=== PATIENT | female | born 1930 | race Caucasian/White ===

== ENCOUNTER → 2016-10-22 | Outpatient (CLI) | payer MEDICARE ==
[2015-11-05 11:20] VITALS: BP 136/81
[~2016-10-22] MED LIST: ALPR0.25 PO; ASPI81TA2 PO; CALC600T4 PO; CITA10TA4 PO; FLUT1DIS IH; LEVO75TA PO; LISI-334 PO; LISI1TAB3 PO; MONT10TA6 PO; REGADENOSON 0.4 MG/5 ML DISP.SYRIN. IV ONE; TRAM-29 PO; TRAZ100T12 PO; TRAZ50TA15 PO; VITA100C4 PO
--- NOTE | 2016-10-22 16:13 | RAD ---
APPROVED REPORT Test Type: Pharmacological Stress Nurse/Tech: SIMBA SANDOVAL Test Indications: FATIGUE, DYSPNEA WITH EXERTION Cardiac History: HTN, SEE EHR Medications: SEE EHR Medical History: ASTHMA, LIVER CIRRHOSIS, SEE EHR Resting ECG: SR Resting Heart Rate: 74 bpm Resting Blood Pressure: 117/67mmHg Pretest Chest Pain: No chest pain Nurse/Tech Notes LUNG SOUNDS CLEAR, S1S2 WNL. Consent: The procedure was explained to the patient in lay terms. Informed consent was witnessed. Eddy eout was entered into [facility]. History and Stress Test performed by ÓSCAR Campos Pharm. Details Pharmacologic stress testing was performed using 0.4mg per 5ml of regadenoson given intravenously ove r 7-10 seconds. Stress Symptoms NAUSEA. POST EXERCISE Reason for Termination: Infusion complete Max HR: 102 bpm Max Blood Pressure: 139/63mmHg Blood Pressure response to exercise: Normal blood pressure response during stress. Heart Rate response to exercise: WNL Chest Pain: No. Arrhythmia: No. ST Change: Yes. INTERPRETATION Stress EKG Conclusion: No evidence of stress induced EKG changes. Imaging Protocol IMAGE PROTOCOL: Rest Tc-99m/stress Tc-99m 1 day Rest: Stress: Viability: Radiopharm.Tc99m [id number] Sestamibi Dose12.6mCi 35.6mCi Duration 15min. 10min. Img Date 10/22/2016 10/22/2016 Inj-Img [id number]. 90min. Rest Admin Site:IV - Right ForearmAdministrator:ÓSCAR Campos Stress Admin Site: IV - Right ForearmAdministrator: TERRI Alarcon, ARRT (R)(N) STRESS DATA End Diast. Vol.16.0mlAv. Heart Atvr463.0bpm End Syst. Vol.1.0mlCO Index BSA0.0L/min Myocardial Mass48.0gEject. Zunmkglw48.0% Stress Rates Pk. Fill Rate2.38EDV/secLVtime Pk. Fill 26.44msec Pk. Empty Rate11.94ESV/secLVtime Pk. Zxfel017.13msec 09/01 Pk. Fill0.45EDV/sec Stress Scores Regional WT1.00Summed WT1.00 Regional WM0.00Summed WM1.00 The rest and stress images show normal perfusion, normal contraction and thickening. LV Perf. Quant 17 Seg. SSS0.00 17 Seg. SRS0.00 17 Seg. SDS0.00 Stress Defect Extent (% LAD)0.00Rest Defect Extent (% LAD)0.00Rev. Defect Extent (% LAD)0.00 Stress Defect Extent (% LCX) 0.00Rest Defect Extent (% LCX)0.00Rev. Defect Extent (% LCX)0.00 Stress Defect Extent (% RCA)0.00Rest Defect Extent (% RCA)0.00Rev. Defect Extent (% RCA)0.00 Stress Defect Extent (% DEANDRA)0.00Rest Defect Extent (% DEANDRA)0.00Rev. Defect Extent (% DEANDRA)0.00 Other Information Quality:Good Risk Assessment: Low Risk Conclusion 1. No evidence of vasodilator induced EKG changes. 2. Normal myocardial perfusion at stress/rest 3. Low risk study. EF > 70%
== END | disposition home or self-care (01) ==
LOC: NM 10:40
PROVIDERS: ATTEND Family Medicine
DX: I10 Essential (primary) hypertension (principal); R53.83 Other fatigue; R06.09 Other forms of dyspnea; E78.5 Hyperlipidemia, unspecified
CPT/HCPCS: 78452; 93017; 96374; 96375; 96376; A9500; J2785

== ENCOUNTER → 2016-11-30 | Outpatient (CLI) | payer MEDICARE ==
[2015-11-05 11:20] VITALS: BP 136/81
[~2016-11-30] MED LIST changes: -REGADENOSON 0.4 MG/5 ML DISP.SYRIN. IV ONE
--- NOTE | 2016-11-30 15:14 | KCIC ---
PROCEDURE Two-view chest HISTORY Chronic cough COMPARISON None FINDINGS Two views of the chest are submitted. Pericardial cardiac silhouette is considered within normal limits. There is atherosclerotic calcification of the aortic arch. There is no dependent pleural fluid, pneumothorax, lobar infiltrate. There is probably emphysema. There is multilevel thoracic spondylosis. There is apparently some deviation of the trachea to the right although may be due to the aortic arch. There is likely height loss of T12 poorly characterized by this exam. IMPRESSION 1. There is no radiographic evidence of acute cardiopulmonary disease. There is probably emphysema. 2. There is some nonspecific deviation of the trachea to the right although may be due to the aortic arch. There are no older exams to evaluate stability. 3. There is likely height loss of T12 vertebral body of uncertain chronicity. Electronically signed by: Cesar Borges MD (Nov 30, 2016 15:13:03)
== END | disposition home or self-care (01) ==
LOC: KCIC 14:05
PROVIDERS: ATTEND Nurse Practitioner Family
DX: R05 Cough (principal)
CPT/HCPCS: 71020

== ENCOUNTER → 2017-07-08 | Outpatient (CLI) | payer MEDICARE ==
[2015-11-05 11:20] VITALS: BP 136/81
[~2017-07-08] MED LIST changes: +ASPI-630 PO; -ASPI81TA2 PO; -TRAM-29 PO; +TRAM-48 PO
--- NOTE | 2017-07-08 16:41 | RAD ---
Ankle brachial index study: Clinical indications: Claudication. Leg aches. Toe pain. Ankle/brachial indices were performed on both sides. Right side: Arm: The systolic blood pressure is 135 mmHg Ankle: The systolic blood pressure is 132 mmHg using the posterior tibial artery and 126 mm Hg using the dorsalis pedis artery. Therefore, the ankle brachial index on the right side is 0.93 using the dorsalis pedis artery.. Left side: Arm: The systolic blood pressure is 132 mmHg Ankle: The systolic blood pressure is 125 mmHg using the posterior tibial artery and 96 mm Hg using the dorsalis pedis artery. Therefore, the ankle brachial index on the left side is 0.72 using the dorsalis pedis artery.. Impression: Mild decrease in the YANICK on the right side and moderate decrease in the YANICK on the left side.
--- NOTE | 2017-07-08 17:01 | RAD ---
EXAM: Bilateral lower extremity arterial Doppler. HISTORY: Bilateral lower extremity claudication and toe pain. COMPARISON: None. FINDINGS: Grayscale and Doppler analysis of the lower extremity arterial systems was performed. There are triphasic waveforms through the proximal superficial femoral arteries bilaterally. There are biphasic more distally bilaterally. There is mildly focally elevated velocity within the left posterior tibial artery distally at 143 cm/s, suggesting a more focal stenosis. IMPRESSION: 1. Findings consistent with mildly flow limiting stenosis within the mid portions of both superficial femoral arteries. Flow is detectable distally bilaterally.
== END | disposition home or self-care (01) ==
LOC: US 15:03
PROVIDERS: ATTEND Family Medicine
DX: I73.9 Peripheral vascular disease, unspecified (principal); M79.605 Pain in left leg; M79.604 Pain in right leg
CPT/HCPCS: 93922; 93925

== ENCOUNTER 2017-10-25 07:06 | Emergency (ER) | payer MEDICARE ==
[2017-10-25] MEDS: DIPHTH,PERTUSS(ACELL),TET TOX 0.5 ML DISP.SYRIN. VAX IM (08:16)
[2017-10-25] MEDS: LIDOCAINE WITH 8.4% SOD BICARB 3 ML DISP.SYRIN. INJ (08:41)
[2017-10-25] MEDS: IPRATRPIUM/ALBUTEROL 0.5/2.5MG 3 ML NEBU. NEB (09:19)
[2017-10-25] MEDS: ACETAMINOPHEN 325 MG TABLET. PO (09:29)
== END 2017-10-25 09:36 | disposition home or self-care (01) ==
LOC: ER 07:06
DX: S01.01XA Laceration without foreign body of scalp, initial encounter (principal); S51.812A Laceration without foreign body of left forearm, initial encounter; J45.909 Unspecified asthma, uncomplicated; Z86.73 Personal history of transient ischemic attack (TIA), and cerebral infarction without residual deficits; Z88.5 Allergy status to narcotic agent; W18.09XA Striking against other object with subsequent fall, initial encounter; Y93.89 Activity, other specified; Y99.8 Other external cause status; Y92.89 Other specified places as the place of occurrence of the external cause
CPT/HCPCS: 12002; 70450; 72125; 90471; 90715; 94640; 99284-25; J7620

== ENCOUNTER → 2017-10-27 | Outpatient (CLI) | payer MEDICARE | END | disposition home or self-care (01) | LOC: KCIC 15:18 | DX: J45.909 Unspecified asthma, uncomplicated (principal); M47.894 Other spondylosis, thoracic region; I70.0 Atherosclerosis of aorta | CPT/HCPCS: 71046 ==

== ENCOUNTER → 2017-12-20 | Outpatient (CLI) | payer MEDICARE ==
[~2017-12-20] MED LIST changes: -ALPR0.25 PO; -ASPI-630 PO; -CALC600T4 PO; -CITA10TA4 PO; -FLUT1DIS IH; -LEVO75TA PO; -LISI-334 PO; -LISI1TAB3 PO; -MONT10TA6 PO; +REGADENOSON 0.4 MG/5 ML DISP.SYRIN. IV; -TRAM-48 PO; -TRAZ100T12 PO; -TRAZ50TA15 PO; -VITA100C4 PO
[2017-12-20] MEDS: REGADENOSON 0.4 MG/5 ML DISP.SYRIN. IV (11:51)
== END | disposition home or self-care (01) ==
LOC: NM 09:01
DX: I11.9 Hypertensive heart disease without heart failure (principal); M79.89 Other specified soft tissue disorders; J45.909 Unspecified asthma, uncomplicated; H54.7 Unspecified visual loss; R60.0 Localized edema; R06.09 Other forms of dyspnea
CPT/HCPCS: 78452; 93017; 93306; 96374; 96375; 96376; A9500; J2785

== ENCOUNTER → 2018-04-26 | Outpatient (CLI) | payer MEDICARE ==
[2017-10-25 08:41] VITALS: BP 109/59
[~2018-04-26] MED LIST changes: +ALPR0.25 PO; +ASCO500T2 PO; +ASPI-630 PO; +BUDE10.2 IH; +CALC-77 PO; +CALC600T4 PO; +CITA10TA4 PO; +DIPH25CA58 PO; +FLUT1DIS IH; +GUAI12003 PO; +LEVO25TA4 PO; +LEVO75TA PO; +LIOT5TAB3 PO; +LISI-334 PO; +LISI1TAB3 PO; +MONT10TA6 PO; +MULT1TAB52 PO; -REGADENOSON 0.4 MG/5 ML DISP.SYRIN. IV; +TRAM-48 PO; +TRAZ-85 PO; +TRAZ-86 PO; +VITA100C4 PO
--- NOTE | 2018-04-26 13:18 | KCIC ---
EXAM: Chest, 2 views. HISTORY: Dyspnea. COMPARISON: 10/27/2017. FINDINGS: Frontal and lateral views of the chest are obtained. There is bilateral lower lobe atelectasis. There is no consolidation, pleural effusion or pneumothorax. There is slight blunting of the right costophrenic angle likely due to basilar scarring or atelectasis. The heart is normal in size. There is thoracic scoliosis. IMPRESSION: Bilateral lower lobe atelectasis. Electronically signed by: Priscilla Goss MD (04/26/2018 1:15 PM) [place] [id number]
== END | disposition home or self-care (01) ==
LOC: KCIC 12:22
PROVIDERS: ATTEND Family Medicine
DX: J98.11 Atelectasis (principal); M41.84 Other forms of scoliosis, thoracic region; E03.9 Hypothyroidism, unspecified; I11.9 Hypertensive heart disease without heart failure; E78.5 Hyperlipidemia, unspecified; Z88.5 Allergy status to narcotic agent
CPT/HCPCS: 71046

== ENCOUNTER → 2018-07-19 | Outpatient (CLI) | payer MEDICARE ==
[2017-10-25 08:41] VITALS: BP 109/59
[~2018-07-19] MED LIST changes: +GADOBUTROL 10 MMOL/10 ML VIAL IV ONE
--- NOTE | 2018-07-19 16:47 | KCIC ---
MRI Brain with and without contrast History: TIA, confused state, hypertension Technique: Multiplanar, multi sequential pre and postcontrast MR imaging was performed of the brain. Comparison: None Findings: There is some motion degradation. There is no evidence of recent infarct or cytotoxic edema. Ventricular size is proportionate to the sulcal spaces. There is mild supratentorial atrophy more greatly affecting parietal lobes.There is no significant midline shift, intraaxial mass effect, or focal abnormal extra-axial fluid collection. There are a few tiny foci of T2 and FLAIR hyperintense signal scattered in any frontal parietal white matter. There are tiny old lacunar infarcts of the bilateral cerebellum. There is focus of old microhemorrhage of the anterior right cerebellum. There is no nodular parenchymal or leptomeningeal enhancement. There is preservation of the major intracranial flow-voids at the skull base. The cerebellar tonsils are normal in location. There is no significant abnormality of the pineal gland or pituitary gland. There has been lens surgery bilaterally. Paranasal sinuses are overall aerated. The mastoid air cells are aerated. There is preserved marrow signal of the clivus. Impression: 1. There is no evidence of recent infarct or abnormal intracranial enhancement. There is mild supratentorial atrophy more greatly affecting the parietal lobes. There is focus of old microhemorrhage of the anterior right cerebellum. There are tiny old cerebellar lacunar infarcts bilaterally. Other very minimal T2 and FLAIR hyperintense signal of the supratentorial parenchyma may be due to chronic microvascular ischemic disease. Electronically signed by: Sunil Borges MD (07/19/2018 4:44 PM) [facility]
--- NOTE | 2018-07-19 16:54 | KCIC ---
Carotid Doppler ultrasound INDICATION: Confusion, dyslipidemia, TIA.. COMPARISON: None are available TECHNIQUE: Color, grayscale and doppler ultrasound images obtained of the carotid system bilaterally. Percent stenosis is estimated using criteria that correlates with NASCET methodology. FINDINGS: Peak systolic velocities are as follows in cm/s: Right Carotid System: CCA PSV: 106 ICA PSV: 139 ICA EDV: 29 ECA PSV: 166 ICA/CCA Ratio 1.3 Right vertebral artery is patent with normal direction of flow. Diffuse plaque identified, greater in the region of the carotid bulb. Left Carotid System: CCA PSV: 105 ICA PSV: 105 ICA EDV: 16 ECA PSV: 175 ICA/CCA Ratio 1.0 Left vertebral artery is patent with normal direction of flow. Diffuse scattered plaque, greatest at the carotid bulb region. IMPRESSION: 1. Mildly elevated right internal carotid artery peak systolic velocity, suggesting a 50-69% stenosis. 2. No evidence of hemodynamically significant stenosis on the left. Electronically signed by: Alpesh Melendez MD (07/19/2018 4:51 PM) [facility]
== END | disposition home or self-care (01) ==
LOC: KCIC MRI 15:08
PROVIDERS: ATTEND Family Medicine
DX: G45.9 Transient cerebral ischemic attack, unspecified (principal); F44.89 Other dissociative and conversion disorders; E78.5 Hyperlipidemia, unspecified; I10 Essential (primary) hypertension; Z79.01 Long term (current) use of anticoagulants; Z86.73 Personal history of transient ischemic attack (TIA), and cerebral infarction without residual deficits
CPT/HCPCS: 70553; 93880; A9585

== ENCOUNTER → 2018-10-27 | Outpatient (CLI) | payer MEDICARE ==
[2018-08-25 11:00] VITALS: BP 105/67
[~2018-10-27] MED LIST changes: +AMOX1TAB61 PO; +ESCITALOPRAM OX10 MG PO; +FLUT12AE IH; -GADOBUTROL 10 MMOL/10 ML VIAL IV ONE; +IPRA3AMP29 NEB; +LIOT5TAB PO; -LIOT5TAB3 PO; +METH4TAB2 PO; +ROPI1TAB PO; +TRAZ-118 PO; -TRAZ-85 PO
--- NOTE | 2018-10-27 15:49 | KCIC ---
EXAM: Chest, 2 views. HISTORY: Cough. COMPARISON: 08/20/2018 FINDINGS: 2 views the chest are obtained. There is suspected lower lobe atelectasis. There is interstitial prominence without thor congestion. There is no consolidation, pleural effusion or pneumothorax. There is a stable prominent cardiac silhouette. There is mild anterior wedging of a upper lumbar vertebral segments. There is degenerative change throughout the spine and both shoulders. IMPRESSION: No acute pulmonary finding. Suspected bilateral lower lobe atelectasis. Electronically signed by: Priscilla oGss MD (10/27/2018 3:46 PM) [place] [id number]
== END | disposition home or self-care (01) ==
LOC: KCIC 15:10
PROVIDERS: ATTEND Nurse Practitioner Family
DX: R05 Cough (principal); R06.02 Shortness of breath; M47.894 Other spondylosis, thoracic region; M19.012 Primary osteoarthritis, left shoulder; M19.011 Primary osteoarthritis, right shoulder; M43.8X6 Other specified deforming dorsopathies, lumbar region; Z87.01 Personal history of pneumonia (recurrent)
CPT/HCPCS: 71046

== ENCOUNTER 2018-11-20 23:03 | Inpatient (IN) | payer MEDICARE ==
[~2018-11-20] VITALS: Ht 154.9 cm; Wt 72.1 kg
[~2018-11-20 23:03] MED LIST changes: -AMOX1TAB61 PO; -FLUT12AE IH; -METH4TAB2 PO
[2018-11-20] MEDS ORDERED: IPRATRPIUM/ALBUTEROL 0.5/2.5MG 3 ML NEBU. NEB ONE (23:30)
[2018-11-20] MEDS ORDERED: methylPREDNISolone SOD SUCC PF 125 MG/2 ML VIAL. IV ONE (23:30)
[2018-11-20 23:41] LABS: BASO % 0 % (0-3); EOS % 0 % (0-3); HEMATOCRIT 40.1 % (36.0-47.0); HEMOGLOBIN 12.8 g/dL (12.0-15.5); LYMPH # 0.6 x10^3/uL (1.0-4.8); LYMPH % 9 % (24-48); MEAN CORPUSCULAR HEMOGLOBIN 30 pg (25-35); MEAN CORPUSCULAR HGB CONC 32 g/dL (31-37); MEAN CORPUSCULAR VOLUME 95 fL (79-100); MONO # 1.2 x10^3/uL (0.0-1.1); MONO % 20 % (0-9); NEUT # 4.2 x10^3uL (1.8-7.7); NEUT % 71 % (31-73); PLATELET COUNT 110 x10^3/uL (140-400); RED BLOOD COUNT 4.23 x10^6/uL (3.50-5.40); RED CELL DISTRIBUTION WIDTH 14.8 % (11.5-14.5)
[2018-11-20 23:44] LABS: CALCIUM 9.3 mg/dL (8.5-10.1); CREATININE 0.8 mg/dL (0.6-1.0); GFR 67.5; POTASSIUM 4.3 mmol/L (3.5-5.1)
--- NOTE | 2018-11-20 23:48 | PHYS DOC ---
Past Medical History Past Medical History: Anxiety, Arthritis, Asthma, Depression, Hypertension, Hypothyroid, Other Additional Past Medical Histor: osteoperosis,PELVIS FX,SINGLES,CIRROHOSIS Past Surgical History: Cholecystectomy, Hip Replacement, Hysterectomy Additional Past Surgical Histo: left hip fracture repair Alcohol Use: None Drug Use: None Adult General Chief Complaint Chief Complaint: SHORTNESS OF BREATH HPI HPI Patient is a 88 year old female who presents with 1 week of cough and increased sleeping. Patient has been on a Z-Alfonso since when they saw their physician. Patient has history of asthma and hypertension. Patient usually only has to wear oxygen 1 L at night when she sleeping and for the past week family states she's been having to wear 3 L because on room air she is at 84%. Patient comes in today with shortness of air and family states she is not getting better with the Z-Alfonso. Review of Systems Review of Systems Constitutional: Denies fever or chills [] Eyes: Denies change in visual acuity, redness, or eye pain [] HENT: Denies nasal congestion or sore throat [] Respiratory: cough or shortness of breath [] Cardiovascular: No additional information not addressed in HPI [] GI: Denies abdominal pain, nausea, vomiting, bloody stools or diarrhea [] : Denies dysuria or hematuria [] Musculoskeletal: Denies back pain or joint pain [] Integument: Denies rash or skin lesions [] Neurologic: Denies headache, focal weakness or sensory changes [] All other systems were reviewed and found to be within normal limits, except as documented in this note. Current Medications Current Medications Current Medications Medications (Trade) Dose Ordered Sig/Hima Start Time Stop Time Status Last Admin Dose Admin Acetaminophen (Tylenol) 650 mg PRN Q4HRS PRN 11/21/18 00:30 11/22/18 00:29 UNV Albuterol/ Ipratropium (Duoneb) 3 ml RTQID 11/21/18 08:00 11/22/18 07:59 UNV Ceftriaxone Sodium (Rocephin) 1 gm 1X ONCE 11/21/18 00:30 11/21/18 00:31 UNV Doxycycline Hyclate 100 mg/ Dextrose 100 ml @ 50 mls/hr 1X ONCE 11/21/18 00:30 11/21/18 02:29 UNV Methylprednisolone Sodium Succinate (SOLU-Medrol 125MG VIAL) 80 mg 1X ONCE 11/20/18 23:30 11/20/18 23:31 DC 11/20/18 23:53 80 MG Ondansetron HCl (Zofran) 4 mg PRN Q8HRS PRN 11/21/18 00:30 11/22/18 00:29 UNV Allergies Allergies Allergies Coded Allergies Type Severity Reaction Last Updated Verified latex Allergy Intermediate HIVES 08/15/18 Yes codeine Adverse Reaction Intermediate nausea 10/25/17 No Physical Exam Physical Exam Constitutional: Well developed, well nourished, no acute distress, non-toxic appearance. [] HENT: Normocephalic, atraumatic, bilateral external ears normal, oropharynx moist, no oral exudates, nose normal. [] Eyes: PERRLA, EOMI, conjunctiva normal, no discharge. [] Neck: Normal range of motion, no tenderness, supple, no stridor. [] Cardiovascular:Heart rate regular rhythm, no murmur [] Lungs & Thorax: Bilateral breath sounds inspiratory and expiratory wheezes to auscultation [] Abdomen: Bowel sounds normal, soft, no tenderness, no masses, no pulsatile masses. [] Skin: Warm, dry, no erythema, no rash. [] Back: No tenderness, no CVA tenderness. [] Extremities: No tenderness, no cyanosis, no clubbing, ROM intact, no edema. [] Neurologic: Alert and oriented X 3, normal motor function, normal sensory function, no focal deficits noted. [] Psychologic: Affect normal, judgement normal, mood normal. [] Current Patient Data Vital Signs Vital Signs Date Time Temp Pulse Resp B/P (MAP) Pulse Ox O2 Delivery O2 Flow Rate FiO2 11/21/18 00:04 93 Nasal Cannula 3.0 11/20/18 23:20 98.9 108 24 202/90 (127) 98.9 Lab Values Laboratory Tests Test 11/20/18 23:25 White Blood Count 6.0 x10^3/uL (4.0-11.0) Red Blood Count 4.23 x10^6/uL (3.50-5.40) Hemoglobin 12.8 g/dL (12.0-15.5) Hematocrit 40.1 % (36.0-47.0) Mean Corpuscular Volume 95 fL (79-100) Mean Corpuscular Hemoglobin 30 pg (25-35) Mean Corpuscular Hemoglobin Concent 32 g/dL (31-37) Red Cell Distribution Width 14.8 % (11.5-14.5) H Platelet Count 110 x10^3/uL (140-400) L Neutrophils (%) (Auto) 71 % (31-73) Lymphocytes (%) (Auto) 9 % (24-48) L Monocytes (%) (Auto) 20 % (0-9) H Eosinophils (%) (Auto) 0 % (0-3) Basophils (%) (Auto) 0 % (0-3) Neutrophils # (Auto) 4.2 x10^3uL (1.8-7.7) Lymphocytes # (Auto) 0.6 x10^3/uL (1.0-4.8) L Monocytes # (Auto) 1.2 x10^3/uL (0.0-1.1) H Eosinophils # (Auto) 0.0 x10^3/uL (0.0-0.7) Basophils # (Auto) 0.0 x10^3/uL (0.0-0.2) Platelet Estimate Pending Sodium Level 143 mmol/L (136-145) Potassium Level 4.3 mmol/L (3.5-5.1) Chloride Level 100 mmol/L (98-107) Carbon Dioxide Level 36 mmol/L (21-32) H Anion Gap 7 (6-14) Blood Urea Nitrogen 17 mg/dL (7-20) Creatinine 0.8 mg/dL (0.6-1.0) Estimated GFR (Cockcroft-Gault) 67.5 BUN/Creatinine Ratio 21 (6-20) H Glucose Level 109 mg/dL (70-99) H Lactic Acid Level 1.9 mmol/L (0.4-2.0) Calcium Level 9.3 mg/dL (8.5-10.1) Total Bilirubin 0.5 mg/dL (0.2-1.0) Aspartate Amino Transferase (AST) 23 U/L (15-37) Alanine Aminotransferase (ALT) 19 U/L (14-59) Alkaline Phosphatase 61 U/L (46-116) Troponin I Quantitative < 0.017 ng/mL (0.000-0.055) Total Protein 6.9 g/dL (6.4-8.2) Albumin 3.2 g/dL (3.4-5.0) L Albumin/Globulin Ratio 0.9 (1.0-1.7) L Laboratory Tests 11/20/18 23:25 Laboratory Tests 11/20/18 23:25 EKG EKG Sinus tach no STEMI[] Interpretation Time: [address] Alvarez Radiology/Procedures Radiology/Procedures [] Impressions: [facility] [address] [place] [address] IMAGING REPORT Signed PATIENT: IZZY GARCIA ACCOUNT: [id number] : 1930 LOCATION: ER AGE: 88 SEX: F EXAM STATUS: PRE ER ORD. PHYSICIAN: MATT WEBER APRN REASON: soa PROCEDURE: PORTABLE CHEST 1V AP portable chest radiograph 11/20/2018 Clinical History: Shortness of breath. An AP erect portable digital radiograph of the chest was obtained. Comparison study is dated 10/27/2018. The cardiac silhouette is mildly enlarged. Atherosclerotic calcification of the thoracic aorta is seen. The thoracic aorta is mildly tortuous. Patchy left lower lobe atelectasis and/or infiltrate is noted. No pneumothorax or pleural effusion is seen. The osseous structures are unchanged. Impression: Patchy left lower lobe atelectasis and/or infiltrate. Electronically signed by: Joe Rodriguez MD (11/21/2018 12:16 AM) [facility] DICTATED and SIGNED BY: JOE RODRIGUEZ MD DATE: 11/21/18 0016 Course & Med Decision Making Course & Med Decision Making Patient is a 88 year old female who presents with 1 week of cough and increased sleeping. Patient has been on a Z-Alfonso since when they saw their physician. Patient has history of asthma and hypertension. Patient usually only has to wear oxygen 1 L at night when she sleeping and for the past week family states she's been having to wear 3 L because on room air she is at 84%. Patient comes in today with shortness of air and family states she is not getting better with the Z-Alfonso. Patient is afebrile, 96% on 3 L, heart rate 110. Patient is alert and oriented and speaks in full clear sentences. Skin is pink warm and dry. Mucous membranes are moist. Patient has inspiratory expiratory wheezes throughout all lobes bilaterally. No peripheral edema. Abdomen is soft and nontender. Patient denies chest pain, abdominal pain, fever, nausea, vomiting, dysuria, diarrhea, dizziness, syncope. Patient states at times when she coughs is usually clear to white for very scant amount. Patient is in no respiratory distress and is not using any a accessory muscles to help breathe. Patient is resting comfortably in the bed. EKG shows sinus tach at 103 but no STEMI. Patient has received 2 DuoNebs and Solu-Medrol. Blood work is unremarkable. Chest xray shows Patchy left lower lobe atelectasis and/or infiltrate. I reexamined the patient after she received 2 DuoNeb some Solu-Medrol. Patient states she is feeling better and she does not need any more breathing treatments. Family states the same. Family is at bedside. Patient is admitted to the hospital for pneumonia. I started the patient on doxycycline and Rocephin. I reported this patient off to Dr. Alvarez who will report patient to the hospitalist in the morning. Dragon Disclaimer Dragon Disclaimer This electronic medical record was generated, in whole or in part, using a voice recognition dictation system. Departure Departure Impression: Primary Impression: Pneumonia Disposition: ADMITTED INPATIENT Admitting Physician: Javan aSldana Condition: STABLE Referrals: BRITTNEY GARZON MD (PCP) Problem Qualifiers Primary Impression: Pneumonia Pneumonia type: due to unspecified organism Laterality: left Lung location : lower lobe of lung Qualified Codes: J18.1 - Lobar pneumonia, unspecified organism MATT WEBER STONEMASON APPRENTICE Nov 20, 2018 23:48
[2018-11-20 23:51] LABS: ALBUMIN 3.2 g/dL (3.4-5.0); ALBUMIN/GLOBULIN RATIO 0.9 (1.0-1.7); TOTAL BILIRUBIN 0.5 mg/dL (0.2-1.0); TOTAL PROTEIN 6.9 g/dL (6.4-8.2)
[2018-11-21] MEDS ORDERED: IPRATRPIUM/ALBUTEROL 0.5/2.5MG 3 ML NEBU. NEB ONE
--- NOTE | 2018-11-21 00:19 | RAD ---
AP portable chest radiograph 11/20/2018 Clinical History: Shortness of breath. An AP erect portable digital radiograph of the chest was obtained. Comparison study is dated 10/27/2018. The cardiac silhouette is mildly enlarged. Atherosclerotic calcification of the thoracic aorta is seen. The thoracic aorta is mildly tortuous. Patchy left lower lobe atelectasis and/or infiltrate is noted. No pneumothorax or pleural effusion is seen. The osseous structures are unchanged. Impression: Patchy left lower lobe atelectasis and/or infiltrate. Electronically signed by: Joe Rodriguez MD (11/21/2018 12:16 AM) [facility]
[2018-11-21] MEDS ORDERED: ACETAMINOPHEN 325 MG TABLET. PO PRN (00:30)
[2018-11-21] MEDS ORDERED: cefTRIAXone IV Push 1 GM VIAL. IVP ONE (00:30)
[2018-11-21] MEDS ORDERED: ONDANSETRON PF 4 MG/2 ML VIAL. IV PRN (00:30)
[2018-11-21] MEDS ORDERED: DOXYCYCLINE HYCLATE 100 MG in IV DEXTROSE 5% 100ML 100 ML IV ONE (01:00)
[2018-11-21 02:15] LABS: % BANDS 9 % (0-9); % LYMPHS 10 % (24-48); % MONOS 18 % (0-10); % SEGS 63 % (35-66)
[2018-11-21 02:16] LABS: PLT ESTIMATE DECREASED (ADEQUATE)
[2018-11-21 02:50] VITALS: BP 152/81
--- NOTE | 2018-11-21 03:23 | NUR ---
The patient, IZZY GARCIA, 88 y/o, F admitted by CHIOMA LOPEZ MD, was given written information regarding hospital policies, unit procedures and contact persons. Valuables were checked and LEFT IN ROOM WITH PATIENT.
[2018-11-21] MEDS ORDERED: FLUT12AE IH (04:13)
[2018-11-21 07:00] VITALS: BP 152/80
[2018-11-21] MEDS: IPRATRPIUM/ALBUTEROL 0.5/2.5MG 3 ML NEBU. NEB SCH ×5 (07:06→20:51)
[2018-11-21] MEDS ORDERED: levOFLOXacin PER PHARMACY. MC PRN (09:15)
[2018-11-21] MEDS ORDERED: guaiFENesin DM 200MG/20MG 10 ML SYRUP PO PRN (09:15)
[2018-11-21] MEDS ORDERED: ALPRAZolam 0.25 MG TABLET PO PRN (09:15)
[2018-11-21] MEDS ORDERED: cloNIDine HCL 0.1 MG TABLET PO PRN (09:15)
--- NOTE | 2018-11-21 10:29 | EKG ---
[facility] [address] [place] [address] Test Date: 2018-11-21 Test Time: 00:06:22 Pat Name: IZZY GARCIA Department: Room: 506 1 Gender: F [employer]: : 1930 Requested By: MATT WEBER Order Number: [id number] Reading MD: Ayden Ellis MD Measurements Intervals [place] Rate: 103 P: -135 [place]: 172 QRS: -166 QRSD: 68 T: 136 QT: 314 QTc: 413 Interpretive Statements SINUS TACHYCARDIA LIMB LEAD MISPLACEMENT 1ST DEGREE AVB Electronically Signed On 11-21-2018 11:09:47 CDT by Ayden Ellis MD
[2018-11-21 11:00] VITALS: BP 153/61
[2018-11-21] MEDS: CALCIUM CARB/VIT D3 500/200 TABLET. PO SCH ×2 (11:06→17:19)
[2018-11-21] MEDS: LEVOTHYROXINE 25 MCG TABLET. PO SCH (11:06)
[2018-11-21] MEDS: rOPINIRole 1 MG TABLET. PO SCH (11:06)
[2018-11-21] MEDS: MULTIVITAMIN with MINERAL TABLET. PO SCH (11:06)
--- NOTE | 2018-11-21 11:08 | PDOC1 ---
History and Physical Date of Admission Date of Admission DATE: 11/21/18 TIME: 11:02 Identification/Chief Complaint Chief Complaint Cough, SOA Source Source: Caregiver, Chart review, Patient History of Present Illness History of Present Illness 88-year-old female, off SOA 1 week. Completed Z-Alfonso but no better. Sats 84% upon arrival, family concerned. Blood pressure on the high side is tachycardia, fulfills sepsis criteria. Never smoker. WBC 6 with platelets 110 but no bleeding. Still very wheezy got a dose of Solu-Medrol. Pneumonia on left upper lobe imaging. Patient still coughing, wheezy and weak. No emesis. A little bit of liquid stools today. We'll check for mycoplasma strep etc. Admitted with pulmonary on board Impression: Patchy left lower lobe atelectasis and/or infiltrate. Past Medical History Cardiovascular: HTN, Hyperlipidemia Pulmonary: Asthma CENTRAL NERVOUS SYSTEM: TIA GI: No pertinent hx Heme/Onc: Other Hepatobiliary: Cirrhosis Psych: Depression Rheumatologic: No pertinent hx Infectious disease: No pertinent hx Renal/: No pertinent hx Endocrine: Hypothyroidism, Osteoporosis Past Surgical History Past Surgical History: Cholecystectomy, Hysterectomy, Other Family History Family History: Cancer, Diabetes, Heart Disease Social History Smoke: No ALCOHOL: none Drugs: None Current Problem List Problem List Problems Medical Problems: (1) Asthma exacerbation Status: Acute (2) Pneumonia Status: Acute Current Medications Current Medications Current Medications Albuterol/ Ipratropium (Duoneb) 3 ml 1X ONCE NEB Last administered on at 23:38; Start 11/20/18 at 23:30; Stop 11/20/18 at 23:31; Status DC Methylprednisolone Sodium Succinate (SOLU-Medrol 125MG VIAL) 80 mg 1X ONCE IV Last administered on 11/20/18at 23:53; Start 11/20/18 at 23:30; Stop 11/20/18 at 23:31; Status DC Albuterol/ Ipratropium (Duoneb) 3 ml 1X ONCE NEB Last administered on at 00:04; Start 11/21/18 at 00:00; Stop 11/21/18 at 00:01; Status DC Ondansetron HCl (Zofran) 4 mg PRN Q8HRS PRN IV NAUSEA/VOMITING; Start 11/21/18 at 00:30; Stop 11/22/18 at 00:29 Acetaminophen (Tylenol) 650 mg PRN Q4HRS PRN PO FEVER; Start 11/21/18 at 00:30 ; Stop 11/22/18 at 00:29 Albuterol/ Ipratropium (Duoneb) 3 ml RTQID NEB Last administered on 11/21/18at 07:06; Start 11/21/18 at 08:00; Stop 11/22/18 at 07:59 Doxycycline Hyclate 100 mg/ Dextrose 100 ml @ 50 mls/hr 1X ONCE IV Last administered on 11/21/18at 01:37; Start 11/21/18 at 01:00; Stop 11/21/18 at 02:59 ; Status DC Ceftriaxone Sodium (Rocephin) 1 gm 1X ONCE IVP Last administered on 11/21/18at 00:54; Start 11/21/18 at 00:30; Stop 11/21/18 at 01:04; Status DC Guaifenesin (Robitussin Dm) 10 ml PRN Q6HRS PRN PO COUGH; Start 11/21/18 at 09: 15 Levofloxacin/ Dextrose (Levaquin Per Pharmacy) 1 each PRN DAILY PRN MC SEE COMMENTS; Start 11/21/18 at 09:15 Clonidine HCl (Catapres) 0.1 mg PRN Q1HR PRN PO HYPERTENSION, SEE COMMENTS; Start 11/21/18 at 09:15 Alprazolam (Xanax) 0.25 mg TID PRN PRN PO ANXIETY / AGITATION; Start 11/21/18 at 09:15 Ascorbic Acid (Vitamin C) 500 mg QHS PO ; Start 11/21/18 at 21:00 Aspirin (Children'S Aspirin) 81 mg QHS PO ; Start 11/21/18 at 21:00 Diphenhydramine HCl (Benadryl) 50 mg QHS PO ; Start 11/21/18 at 21:00 Liothyronine Sodium (Cytomel) 5 mcg DAILY PO ; Start 11/22/18 at 10:00 Trazodone HCl (Desyrel) 100 mg QHS PO ; Start 11/21/18 at 21:00 Non-Formulary Medication (Budesonide/ Formoterol Fumarate (Symbicort 160-4.5 Mcg Inhaler)) 1 puff BID IH ; Start 11/21/18 at 21:00; Status UNV Calcium/Vitamin D (Oscal D 500mg/ 200uts) 1 tab BIDWMEALS PO ; Start 11/21/18 at 10:00 Citalopram Hydrobromide (CeleXA) 10 mg DAILY PO ; Start 11/22/18 at 09:00 Non-Formulary Medication (Fluticasone Propionate (Flovent 110MCG Hfa)) 2 puff BID IH ; Start 11/21/18 at 21:00; Status UNV Guaifenesin (Mucinex) 1,200 mg BID PO ; Start 11/21/18 at 10:00 Levothyroxine Sodium (Synthroid) 25 mcg DAILY06 PO ; Start 11/21/18 at 10:00 Montelukast Sodium (Singulair) 10 mg QHS PO ; Start 11/21/18 at 21:00 Multivitamins (Thera M Plus) 1 tab DAILY PO ; Start 11/21/18 at 10:00 Ropinirole HCl (Requip) 2 mg DAILY PO ; Start 11/21/18 at 10:00 Albuterol/ Ipratropium (Duoneb) 3 ml RTQID NEB ; Start 11/21/18 at 12:00 Budesonide (Pulmicort) 0.5 mg RTBID NEB ; Start 11/21/18 at 12:00 Levofloxacin/ Dextrose 100 ml @ 100 mls/hr 1X ONCE IV ; Start 11/21/18 at 10: 00; Stop 11/21/18 at 10:59; Status DC Levofloxacin/ Dextrose 50 ml @ 50 mls/hr Q24H IV ; Start 11/22/18 at 10:00 Active Scripts Active Reported Flovent 110MCG Hfa (Fluticasone Propionate) 12 Gm Aer.w.adap 2 Puff IH BID Duoneb 0.5-3(2.5) Mg/3 Ml (Albuterol/Ipratropium) 3 Ml Ampul.neb 3 Ml NEB QID Escitalopram Oxalate 10 Mg Tablet 0.5 Tab PO DAILY Requip (Ropinirole Hcl) 1 Mg Tablet 2 Mg PO DAILY Mucinex (Guaifenesin) 1,200 Mg Tbmp.12hr 1 Tab PO BID Benadryl (Diphenhydramine Hcl) 25 Mg Capsule 2 Cap PO QHS Vitamin C (Ascorbic Acid) 500 Mg Tablet 500 Mg PO QHS Symbicort 160-4.5 Mcg Inhaler (Budesonide/Formoterol Fumarate) 10.2 Gm Hfa.aer.ad 1 Puff IH BID Calcium + D3 Er Tablet (Calcium Carb & Cit/Vitamin D3) 1 Each Tablet.er 1 Each PO BID Multivitamins (Multivitamin) 1 Each Tablet 1 Tab PO DAILY Liothyronine Sodium 5 Mcg Tablet 5 Mcg PO DAILY Levothyroxine Sodium 25 Mcg Tablet 1 Tab PO DAILY Xanax (Alprazolam) 0.25 Mg Tablet 0.25 Mg PO TID PRN PRN Singulair Tablet (Montelukast Sodium) 10 Mg Tablet 10 Mg PO QHS Aspirin 81 Mg Tab.chew 81 Mg PO QHS Trazodone Hcl 100 Mg Tablet 100 Mg PO QHS Allergies Allergies: Coded Allergies: latex (Verified Allergy, Intermediate, HIVES, 08/15/18) codeine (Verified Adverse Reaction, Intermediate, nausea, 11/21/18) ROS Review of System Loose Stools today, cough, SOA, weak, the rest of ROS 14 point negative-please refer to history of present illness Physical Exam General: mild distress, Other (wheezy, on oxygen 2 L nasal cannula satting 92%) HEENT: Atraumatic, PERRLA Lungs: Normal air movement, Other (symmetrical chest expansion, dullness on the left side, equal air entry but wheezy posterior auscultation) Cardiovascular: S1, S2 Breasts: Normal, Rt breast nml w/o mass, Lt breast nml w/o mass, Nipples normal Abdomen: Normal bowel sounds, Soft, No tenderness, No hepatosplenomegaly, No masses Rectal Exam: not examined PELVIC: Nml ext genitalia Extremities: No clubbing, No cyanosis, No edema, Normal pulses, No tenderness/ swelling Skin: No rashes, No breakdown, No significant lesion Neuro: Normal gait, Normal speech, Strength at 5/5 X4 ext, Normal tone, Sensation intact, Cranial nerves 3-12 NL, Reflexes 2+ Psych/Mental Status: Mental status NL, Mood NL Vitals Vitals Vital Signs Date Time Temp Pulse Resp B/P (MAP) Pulse Ox O2 Delivery O2 Flow Rate FiO2 11/21/18 07:06 96 Nasal Cannula 4.0 11/21/18 07:00 97.9 98 20 152/80 (104) 97.9 Labs Labs Laboratory Tests Test 11/20/18 23:25 White Blood Count 6.0 x10^3/uL (4.0-11.0) Red Blood Count 4.23 x10^6/uL (3.50-5.40) Hemoglobin 12.8 g/dL (12.0-15.5) Hematocrit 40.1 % (36.0-47.0) Mean Corpuscular Volume 95 fL (79-100) Mean Corpuscular Hemoglobin 30 pg (25-35) Mean Corpuscular Hemoglobin Concent 32 g/dL (31-37) Red Cell Distribution Width 14.8 % (11.5-14.5) Platelet Count 110 x10^3/uL (140-400) Neutrophils (%) (Auto) 71 % (31-73) Lymphocytes (%) (Auto) 9 % (24-48) Monocytes (%) (Auto) 20 % (0-9) Eosinophils (%) (Auto) 0 % (0-3) Basophils (%) (Auto) 0 % (0-3) Neutrophils # (Auto) 4.2 x10^3uL (1.8-7.7) Lymphocytes # (Auto) 0.6 x10^3/uL (1.0-4.8) Monocytes # (Auto) 1.2 x10^3/uL (0.0-1.1) Eosinophils # (Auto) 0.0 x10^3/uL (0.0-0.7) Basophils # (Auto) 0.0 x10^3/uL (0.0-0.2) Segmented Neutrophils % 63 % (35-66) Band Neutrophils % 9 % (0-9) Lymphocytes % 10 % (24-48) Monocytes % 18 % (0-10) Platelet Estimate Decreased (ADEQUATE) Large Platelets Occ Sodium Level 143 mmol/L (136-145) Potassium Level 4.3 mmol/L (3.5-5.1) Chloride Level 100 mmol/L (98-107) Carbon Dioxide Level 36 mmol/L (21-32) Anion Gap 7 (6-14) Blood Urea Nitrogen 17 mg/dL (7-20) Creatinine 0.8 mg/dL (0.6-1.0) Estimated GFR (Cockcroft-Gault) 67.5 BUN/Creatinine Ratio 21 (6-20) Glucose Level 109 mg/dL (70-99) Lactic Acid Level 1.9 mmol/L (0.4-2.0) Calcium Level 9.3 mg/dL (8.5-10.1) Total Bilirubin 0.5 mg/dL (0.2-1.0) Aspartate Amino Transf (AST/SGOT) 23 U/L (15-37) Alanine Aminotransferase (ALT/SGPT) 19 U/L (14-59) Alkaline Phosphatase 61 U/L (46-116) Troponin I Quantitative < 0.017 ng/mL (0.000-0.055) Total Protein 6.9 g/dL (6.4-8.2) Albumin 3.2 g/dL (3.4-5.0) Albumin/Globulin Ratio 0.9 (1.0-1.7) Laboratory Tests Test 11/20/18 23:25 White Blood Count 6.0 x10^3/uL (4.0-11.0) Red Blood Count 4.23 x10^6/uL (3.50-5.40) Hemoglobin 12.8 g/dL (12.0-15.5) Hematocrit 40.1 % (36.0-47.0) Mean Corpuscular Volume 95 fL (79-100) Mean Corpuscular Hemoglobin 30 pg (25-35) Mean Corpuscular Hemoglobin Concent 32 g/dL (31-37) Red Cell Distribution Width 14.8 % (11.5-14.5) Platelet Count 110 x10^3/uL (140-400) Neutrophils (%) (Auto) 71 % (31-73) Lymphocytes (%) (Auto) 9 % (24-48) Monocytes (%) (Auto) 20 % (0-9) Eosinophils (%) (Auto) 0 % (0-3) Basophils (%) (Auto) 0 % (0-3) Neutrophils # (Auto) 4.2 x10^3uL (1.8-7.7) Lymphocytes # (Auto) 0.6 x10^3/uL (1.0-4.8) Monocytes # (Auto) 1.2 x10^3/uL (0.0-1.1) Eosinophils # (Auto) 0.0 x10^3/uL (0.0-0.7) Basophils # (Auto) 0.0 x10^3/uL (0.0-0.2) Segmented Neutrophils % 63 % (35-66) Band Neutrophils % 9 % (0-9) Lymphocytes % 10 % (24-48) Monocytes % 18 % (0-10) Platelet Estimate Decreased (ADEQUATE) Large Platelets Occ Sodium Level 143 mmol/L (136-145) Potassium Level 4.3 mmol/L (3.5-5.1) Chloride Level 100 mmol/L (98-107) Carbon Dioxide Level 36 mmol/L (21-32) Anion Gap 7 (6-14) Blood Urea Nitrogen 17 mg/dL (7-20) Creatinine 0.8 mg/dL (0.6-1.0) Estimated GFR (Cockcroft-Gault) 67.5 BUN/Creatinine Ratio 21 (6-20) Glucose Level 109 mg/dL (70-99) Lactic Acid Level 1.9 mmol/L (0.4-2.0) Calcium Level 9.3 mg/dL (8.5-10.1) Total Bilirubin 0.5 mg/dL (0.2-1.0) Aspartate Amino Transf (AST/SGOT) 23 U/L (15-37) Alanine Aminotransferase (ALT/SGPT) 19 U/L (14-59) Alkaline Phosphatase 61 U/L (46-116) Troponin I Quantitative < 0.017 ng/mL (0.000-0.055) Total Protein 6.9 g/dL (6.4-8.2) Albumin 3.2 g/dL (3.4-5.0) Albumin/Globulin Ratio 0.9 (1.0-1.7) VTE Prophylaxis Ordered VTE Prophylaxis Devices: Yes VTE Pharmacological Prophylaxi: Yes Assessment/Plan Assessment/Plan LEft Lower lobe pneumonia/CAP in a never smoker Obesity BMI 30 Sepsis with tachycardia Hypoxic respiratory failure-sats 84% on arrival Accelerated hypertension POA Cirrhosis history Thrombocytopenia in a cirrhotic patient, no bleeding Plan: Admit 2 MN Delicia per pharmacy pulmo consulted Other supportive meds, cough meds and DuoNeb's. monitor the thrombocytopenia - monitor for bleeds but so far none Add PT OT Might need oxygen? on DC will do 6 minute walk Star some steroids - wheezy FULL CODE JOSE LIAO MD Nov 21, 2018 11:08
[2018-11-21] MEDS ORDERED: LOPERAMIDE 2 MG CAPSULE PO PRN (11:15)
[2018-11-21] MEDS ORDERED: methylPREDNISolone SOD SUCC PF 40 MG/ML VIAL. IV ONE (11:30)
[2018-11-21] MEDS: BUDESONIDE 0.5 MG/2 ML NEBU. NEB SCH ×2 (11:32→20:51)
--- NOTE | 2018-11-21 13:13 | NUR ---
SW following pt for anticipated dc needs. Chart reviewed. Pt lives at home with family and had [facility] in the past. PT/OT pending. SW will await for PT/OT recommendation to assess skilled needs. Will continue to follow.
[2018-11-21 13:54] LABS: MYCOPLASMA PATIENT NEGATIVE (NEGATIVE)
[2018-11-21 15:00] VITALS: BP 125/71
[2018-11-21] MEDS: methylPREDNISolone SOD SUCC PF 40 MG/ML VIAL. IV SCH ×2 (17:20→22:02)
--- NOTE | 2018-11-21 17:50 | PDOC ---
PULMONARY PROGRESS NOTES Vitals Vital Signs Date Time Temp Pulse Resp B/P (MAP) Pulse Ox O2 Delivery O2 Flow Rate FiO2 11/21/18 15:25 Nasal Cannula 4.0 11/21/18 15:00 98.3 97 16 125/71 (89) 93 98.3 General: Alert Lungs: Crackles, Other Cardiovascular: S1, S2 Abdomen: Soft Extremities: No Edema, Other Labs Laboratory Tests Test 11/20/18 23:25 11/21/18 12:10 White Blood Count 6.0 x10^3/uL (4.0-11.0) Red Blood Count 4.23 x10^6/uL (3.50-5.40) Hemoglobin 12.8 g/dL (12.0-15.5) Hematocrit 40.1 % (36.0-47.0) Mean Corpuscular Volume 95 fL (79-100) Mean Corpuscular Hemoglobin 30 pg (25-35) Mean Corpuscular Hemoglobin Concent 32 g/dL (31-37) Red Cell Distribution Width 14.8 % (11.5-14.5) Platelet Count 110 x10^3/uL (140-400) Neutrophils (%) (Auto) 71 % (31-73) Lymphocytes (%) (Auto) 9 % (24-48) Monocytes (%) (Auto) 20 % (0-9) Eosinophils (%) (Auto) 0 % (0-3) Basophils (%) (Auto) 0 % (0-3) Neutrophils # (Auto) 4.2 x10^3uL (1.8-7.7) Lymphocytes # (Auto) 0.6 x10^3/uL (1.0-4.8) Monocytes # (Auto) 1.2 x10^3/uL (0.0-1.1) Eosinophils # (Auto) 0.0 x10^3/uL (0.0-0.7) Basophils # (Auto) 0.0 x10^3/uL (0.0-0.2) Segmented Neutrophils % 63 % (35-66) Band Neutrophils % 9 % (0-9) Lymphocytes % 10 % (24-48) Monocytes % 18 % (0-10) Platelet Estimate Decreased (ADEQUATE) Large Platelets Occ Sodium Level 143 mmol/L (136-145) Potassium Level 4.3 mmol/L (3.5-5.1) Chloride Level 100 mmol/L (98-107) Carbon Dioxide Level 36 mmol/L (21-32) Anion Gap 7 (6-14) Blood Urea Nitrogen 17 mg/dL (7-20) Creatinine 0.8 mg/dL (0.6-1.0) Estimated GFR (Cockcroft-Gault) 67.5 BUN/Creatinine Ratio 21 (6-20) Glucose Level 109 mg/dL (70-99) Lactic Acid Level 1.9 mmol/L (0.4-2.0) Calcium Level 9.3 mg/dL (8.5-10.1) Total Bilirubin 0.5 mg/dL (0.2-1.0) Aspartate Amino Transf (AST/SGOT) 23 U/L (15-37) Alanine Aminotransferase (ALT/SGPT) 19 U/L (14-59) Alkaline Phosphatase 61 U/L (46-116) Troponin I Quantitative < 0.017 ng/mL (0.000-0.055) Total Protein 6.9 g/dL (6.4-8.2) Albumin 3.2 g/dL (3.4-5.0) Albumin/Globulin Ratio 0.9 (1.0-1.7) Mycoplasma Serology (LAB) Negative (NEGATIVE) Laboratory Tests Test 11/20/18 23:25 11/21/18 12:10 White Blood Count 6.0 x10^3/uL (4.0-11.0) Red Blood Count 4.23 x10^6/uL (3.50-5.40) Hemoglobin 12.8 g/dL (12.0-15.5) Hematocrit 40.1 % (36.0-47.0) Mean Corpuscular Volume 95 fL (79-100) Mean Corpuscular Hemoglobin 30 pg (25-35) Mean Corpuscular Hemoglobin Concent 32 g/dL (31-37) Red Cell Distribution Width 14.8 % (11.5-14.5) Platelet Count 110 x10^3/uL (140-400) Neutrophils (%) (Auto) 71 % (31-73) Lymphocytes (%) (Auto) 9 % (24-48) Monocytes (%) (Auto) 20 % (0-9) Eosinophils (%) (Auto) 0 % (0-3) Basophils (%) (Auto) 0 % (0-3) Neutrophils # (Auto) 4.2 x10^3uL (1.8-7.7) Lymphocytes # (Auto) 0.6 x10^3/uL (1.0-4.8) Monocytes # (Auto) 1.2 x10^3/uL (0.0-1.1) Eosinophils # (Auto) 0.0 x10^3/uL (0.0-0.7) Basophils # (Auto) 0.0 x10^3/uL (0.0-0.2) Segmented Neutrophils % 63 % (35-66) Band Neutrophils % 9 % (0-9) Lymphocytes % 10 % (24-48) Monocytes % 18 % (0-10) Platelet Estimate Decreased (ADEQUATE) Large Platelets Occ Sodium Level 143 mmol/L (136-145) Potassium Level 4.3 mmol/L (3.5-5.1) Chloride Level 100 mmol/L (98-107) Carbon Dioxide Level 36 mmol/L (21-32) Anion Gap 7 (6-14) Blood Urea Nitrogen 17 mg/dL (7-20) Creatinine 0.8 mg/dL (0.6-1.0) Estimated GFR (Cockcroft-Gault) 67.5 BUN/Creatinine Ratio 21 (6-20) Glucose Level 109 mg/dL (70-99) Lactic Acid Level 1.9 mmol/L (0.4-2.0) Calcium Level 9.3 mg/dL (8.5-10.1) Total Bilirubin 0.5 mg/dL (0.2-1.0) Aspartate Amino Transf (AST/SGOT) 23 U/L (15-37) Alanine Aminotransferase (ALT/SGPT) 19 U/L (14-59) Alkaline Phosphatase 61 U/L (46-116) Troponin I Quantitative < 0.017 ng/mL (0.000-0.055) Total Protein 6.9 g/dL (6.4-8.2) Albumin 3.2 g/dL (3.4-5.0) Albumin/Globulin Ratio 0.9 (1.0-1.7) Mycoplasma Serology (LAB) Negative (NEGATIVE) Medications Active Scripts Medications Dose Route/Sig Max Daily Dose Days Date Category Flovent 110MCG Hfa (Fluticasone Propionate) 12 Gm Aer.w.adap 2 Puff IH BID 11/21/18 Reported Duoneb 0.5-3(2.5) Mg/3 Ml (Albuterol/Ipratropium) 3 Ml Ampul.neb 3 Ml NEB QID 08/25/18 Reported Escitalopram Oxalate 10 Mg Tablet 0.5 Tab PO DAILY 08/18/18 Reported Requip (Ropinirole Hcl) 1 Mg Tablet 2 Mg PO DAILY 08/15/18 Reported Mucinex (Guaifenesin) 1,200 Mg Tbmp.12hr 1 Tab PO BID 10/25/17 Reported Benadryl (Diphenhydramine Hcl) 25 Mg Capsule 2 Cap PO QHS 10/25/17 Reported Vitamin C (Ascorbic Acid) 500 Mg Tablet 500 Mg PO QHS 10/25/17 Reported Symbicort 160-4.5 Mcg Inhaler (Budesonide/Formoterol Fumarate) 10.2 Gm Hfa.aer.ad 1 Puff IH BID 10/25/17 Reported Calcium + D3 Er Tablet (Calcium Carb & Cit/Vitamin D3) 1 Each Tablet.er 1 Each PO BID 10/25/17 Reported Multivitamins (Multivitamin) 1 Each Tablet 1 Tab PO DAILY 10/25/17 Reported Liothyronine Sodium 5 Mcg Tablet 5 Mcg PO DAILY 10/25/17 Reported Levothyroxine Sodium 25 Mcg Tablet 1 Tab PO DAILY 10/25/17 Reported Xanax (Alprazolam) 0.25 Mg Tablet 0.25 Mg PO TID PRN PRN 03/19/14 Reported Singulair Tablet (Montelukast Sodium) 10 Mg Tablet 10 Mg PO QHS 09/18/13 Reported Aspirin 81 Mg Tab.chew 81 Mg PO QHS 09/18/13 Reported Trazodone Hcl 100 Mg Tablet 100 Mg PO QHS 09/18/13 Reported Impression . FULL NOTE DICTATED THANKS PNEUMONIA AE ASTHMA AGREE WITH CURRENT RX TERRY NOVOA MD Nov 21, 2018 17:50
[2018-11-21 19:00] VITALS: BP 151/80
[2018-11-21] MEDS ORDERED: NON FORMULARY ITEM (Fluticasone Propionate (Flovent 110MCG Hfa) 2 PUFF) IH SCH (21:00)
[2018-11-21] MEDS ORDERED: NON FORMULARY ITEM (Budesonide/Formoterol Fumarate (Symbicort 160-4.5 Mcg Inhaler) 1 PUFF) IH SCH (21:00)
[2018-11-21 21:18] LABS: BILIRUBIN,URINE NEGATIVE (NEG); CLARITY,URINE CLOUDY; COLOR,URINE YELLOW; NITRITE,URINE NEGATIVE (NEG); PH,URINE 5.5; PROTEIN,URINE 100 mg/dL (NEG-TRACE); UROBILINOGEN,URINE 0.2 mg/dL (0.2 mg/dL)
[2018-11-21 21:29] LABS: BACTERIA,URINE 0 /HPF (0-FEW); HYALINE CASTS, URINE FEW /HPF; RBC,URINE 0 /HPF (0-2); SQUAMOUS EPITHELIAL CELL,UR MOD /LPF
[2018-11-21] MEDS: MONTELUKAST SODIUM 10 MG TABLET. PO SCH (22:02)
[2018-11-21] MEDS: traZODone 100 MG TABLET. PO SCH (22:02)
[2018-11-21] MEDS: ASCORBIC ACID 500 MG TABLET PO SCH (22:02)
[2018-11-21] MEDS: ASPIRIN CHEWABLE 81 MG TABLET. PO SCH (22:02)
[2018-11-21] MEDS: diphenhydrAMINE HCL 25 MG CAPSULE PO SCH (22:02)
[2018-11-21 23:00] VITALS: BP 109/59
--- NOTE | 2018-11-22 01:15 | CONS ---
DATE OF CONSULTATION: 11/21/2018 ATTENDING PHYSICIAN: Dr. Garcia. REASON FOR CONSULTATION: The patient seen in pulmonary consultation at the request of Dr. Garcia for abnormal x-ray. HISTORY OF PRESENT ILLNESS: The patient is an 88-year-old that is well known to me from previous hospitalization. She was here in 07/2018 with [id number] hypercapnic respiratory failure, acute exacerbation of asthma. At that time, she underwent video dysphagia study, which revealed no thor aspiration. The patient was doing well at home up until 2-3 days prior to admission, increasing shortness of breath, cough. The patient states that she was utilizing oxygen at bedtime, but none during the day. They noticed on room air her O2 saturation was 84%. They supplemented the oxygen and transferred to the Emergency Department. She had a chest x-ray, which revealed left lower lobe infiltrate. She was admitted. The patient is more short of air. She is actually using some accessory muscles to breathe during my evaluation. She has a prolonged expiratory phase. She has a cough, mostly nonproductive. No fever, chills or night sweats. No documented fever at home. PAST MEDICAL HISTORY: Chronic respiratory failure, hypertension, previous history of hypercapnia, adult-onset asthma, TIA, cirrhosis, depression. She had had previous video dysphagia study, which showed no thor aspiration. REVIEW OF SYSTEMS: CONSTITUTIONAL: No fever or chills. EYES: No change in visual acuity. HEENT: No nasal congestion or sore throat. PULMONARY: As indicated above. CARDIOVASCULAR: No chest pain. No pressure. GASTROINTESTINAL: No nausea, vomiting, diarrhea. GENITOURINARY: No dysuria or frequency. MUSCULOSKELETAL: No localized muscle aches or joint pain. SKIN: No new skin lesions. NEUROLOGIC: No headaches, diplopia or blurred vision. ALLERGIES: CODEINE. CURRENT MEDICATIONS: List was reviewed. SOCIAL HISTORY: She does not smoke. Denies any alcohol intake. PHYSICAL EXAMINATION: GENERAL: The patient using accessory muscles to breathe. VITAL SIGNS: Elevated respiratory rate. Currently on 4 liters. HEENT: Eyes, the sclerae were nonicteric. NECK: Jugular venous distention could not be assessed secondary to body habitus. CHEST: Full expansion. LUNGS: Poor airway flow with prolonged expiratory phase. Some rales in the left base. CARDIOVASCULAR: Regular rate and rhythm with S1, S2, no S3. ABDOMEN: Soft, nontender, nondistended. EXTREMITIES: No clubbing, cyanosis or pitting edema. NEUROLOGIC: The patient was awake, alert, following commands. A detailed neuro exam was not performed. LABORATORY DATA: Mycoplasma serology was negative. Electrolytes were noted. White count was normal. Chest x-ray as indicated above. IMPRESSION: 1. [id number] hypoxemic hypercapnic respiratory failure. 2. Left lower lobe infiltrate compatible with pneumonia. 3. Acute exacerbation of asthma. 4. Morbid obesity. 5. Accelerated hypertension. PLAN: 1. Continue current antibiotics. 2. Oxygen supplementation. 3. Nebulized treatments. 4. PT evaluate and treat. The above was discussed with the daughters at the bedside, one of them is her primary caregiver. I do appreciate the privilege in sharing in the patient's care. TERRY NOVOA MD DR: CHELSEY/rogelio JOB#: [id number] / [id number]
[2018-11-22 03:00] VITALS: BP 138/69
[2018-11-22 04:27] LABS: BASO % 0 % (0-3); EOS % 0 % (0-3); HEMATOCRIT 35.4 % (36.0-47.0); HEMOGLOBIN 11.4 g/dL (12.0-15.5); LYMPH # 0.2 x10^3/uL (1.0-4.8); LYMPH % 5 % (24-48); MEAN CORPUSCULAR HEMOGLOBIN 30 pg (25-35); MEAN CORPUSCULAR HGB CONC 32 g/dL (31-37); MEAN CORPUSCULAR VOLUME 94 fL (79-100); MONO # 0.3 x10^3/uL (0.0-1.1); MONO % 8 % (0-9); NEUT # 3.7 x10^3uL (1.8-7.7); NEUT % 87 % (31-73); PLATELET COUNT 146 x10^3/uL (140-400); RED BLOOD COUNT 3.76 x10^6/uL (3.50-5.40); RED CELL DISTRIBUTION WIDTH 14.6 % (11.5-14.5); WHITE BLOOD COUNT 4.2 x10^3/uL (4.0-11.0)
[2018-11-22 05:05] LABS: CALCIUM 9.4 mg/dL (8.5-10.1); CREATININE 0.9 mg/dL (0.6-1.0); POTASSIUM 4.6 mmol/L (3.5-5.1)
[2018-11-22] MEDS: methylPREDNISolone SOD SUCC PF 40 MG/ML VIAL. IV SCH ×3 (05:54→21:41)
[2018-11-22] MEDS: LEVOTHYROXINE 25 MCG TABLET. PO SCH (05:54)
[2018-11-22 07:00] VITALS: BP 132/78
[2018-11-22] MEDS: BUDESONIDE 0.5 MG/2 ML NEBU. NEB SCH ×2 (08:00→21:12)
[2018-11-22] MEDS: IPRATRPIUM/ALBUTEROL 0.5/2.5MG 3 ML NEBU. NEB SCH ×4 (08:42→21:12)
[2018-11-22] MEDS: CALCIUM CARB/VIT D3 500/200 TABLET. PO SCH ×2 (09:18→17:16)
[2018-11-22] MEDS: MULTIVITAMIN with MINERAL TABLET. PO SCH (09:19)
[2018-11-22] MEDS: CITALOPRAM 10 MG TABLET. PO SCH (09:19)
[2018-11-22] MEDS: LIOTHYRONINE 5 MCG TABLET. PO SCH (09:19)
[2018-11-22] MEDS: rOPINIRole 1 MG TABLET. PO SCH (09:22)
--- NOTE | 2018-11-22 09:26 | PDOC ---
PULMONARY PROGRESS NOTES Subjective PT FEELS BETTER EATING DINNER Vitals Vital Signs Date Time Temp Pulse Resp B/P (MAP) Pulse Ox O2 Delivery O2 Flow Rate FiO2 11/22/18 08:45 94 Nasal Cannula 3.5 11/22/18 07:00 98.1 89 20 132/78 (96) 98.1 ROS: No Nausea, No Chest Pain, No Abdominal Pain, No Increase Cough General: Alert Lungs: Clear Cardiovascular: S1, S2 Abdomen: Soft Neuro Exam: Alert Extremities: No Edema, Other Skin: Warm Labs Laboratory Tests Test 11/20/18 23:25 11/21/18 12:10 11/21/18 21:05 11/22/18 03:35 White Blood Count 6.0 x10^3/uL (4.0-11.0) 4.2 x10^3/uL (4.0-11.0) Red Blood Count 4.23 x10^6/uL (3.50-5.40) 3.76 x10^6/uL (3.50-5.40) Hemoglobin 12.8 g/dL (12.0-15.5) 11.4 g/dL (12.0-15.5) Hematocrit 40.1 % (36.0-47.0) 35.4 % (36.0-47.0) Mean Corpuscular Volume 95 fL (79-100) 94 fL (79-100) Mean Corpuscular Hemoglobin 30 pg (25-35) 30 pg (25-35) Mean Corpuscular Hemoglobin Concent 32 g/dL (31-37) 32 g/dL (31-37) Red Cell Distribution Width 14.8 % (11.5-14.5) 14.6 % (11.5-14.5) Platelet Count 110 x10^3/uL (140-400) 146 x10^3/uL (140-400) Neutrophils (%) (Auto) 71 % (31-73) 87 % (31-73) Lymphocytes (%) (Auto) 9 % (24-48) 5 % (24-48) Monocytes (%) (Auto) 20 % (0-9) 8 % (0-9) Eosinophils (%) (Auto) 0 % (0-3) 0 % (0-3) Basophils (%) (Auto) 0 % (0-3) 0 % (0-3) Neutrophils # (Auto) 4.2 x10^3uL (1.8-7.7) 3.7 x10^3uL (1.8-7.7) Lymphocytes # (Auto) 0.6 x10^3/uL (1.0-4.8) 0.2 x10^3/uL (1.0-4.8) Monocytes # (Auto) 1.2 x10^3/uL (0.0-1.1) 0.3 x10^3/uL (0.0-1.1) Eosinophils # (Auto) 0.0 x10^3/uL (0.0-0.7) 0.0 x10^3/uL (0.0-0.7) Basophils # (Auto) 0.0 x10^3/uL (0.0-0.2) 0.0 x10^3/uL (0.0-0.2) Segmented Neutrophils % 63 % (35-66) Band Neutrophils % 9 % (0-9) Lymphocytes % 10 % (24-48) Monocytes % 18 % (0-10) Platelet Estimate Decreased (ADEQUATE) Large Platelets Occ Sodium Level 143 mmol/L (136-145) 144 mmol/L (136-145) Potassium Level 4.3 mmol/L (3.5-5.1) 4.6 mmol/L (3.5-5.1) Chloride Level 100 mmol/L (98-107) 103 mmol/L (98-107) Carbon Dioxide Level 36 mmol/L (21-32) 36 mmol/L (21-32) Anion Gap 7 (6-14) 5 (6-14) Blood Urea Nitrogen 17 mg/dL (7-20) 17 mg/dL (7-20) Creatinine 0.8 mg/dL (0.6-1.0) 0.9 mg/dL (0.6-1.0) Estimated GFR (Cockcroft-Gault) 67.5 59.0 BUN/Creatinine Ratio 21 (6-20) Glucose Level 109 mg/dL (70-99) 164 mg/dL (70-99) Lactic Acid Level 1.9 mmol/L (0.4-2.0) 1.0 mmol/L (0.4-2.0) Calcium Level 9.3 mg/dL (8.5-10.1) 9.4 mg/dL (8.5-10.1) Total Bilirubin 0.5 mg/dL (0.2-1.0) Aspartate Amino Transf (AST/SGOT) 23 U/L (15-37) Alanine Aminotransferase (ALT/SGPT) 19 U/L (14-59) Alkaline Phosphatase 61 U/L (46-116) Troponin I Quantitative < 0.017 ng/mL (0.000-0.055) Total Protein 6.9 g/dL (6.4-8.2) Albumin 3.2 g/dL (3.4-5.0) Albumin/Globulin Ratio 0.9 (1.0-1.7) Mycoplasma Serology (LAB) Negative (NEGATIVE) Urine Collection Type Unknown Urine Color Yellow Urine Clarity Cloudy Urine pH 5.5 Urine Specific [place] >=1.030 Urine Protein 100 mg/dL (NEG-TRACE) Urine Glucose (UA) Negative mg/dL (NEG) Urine Ketones (Stick) Trace mg/dL (NEG) Urine Blood Negative (NEG) Urine Nitrite Negative (NEG) Urine Bilirubin Negative (NEG) Urine Urobilinogen Dipstick 0.2 mg/dL (0.2 mg/dL) Urine Leukocyte Esterase Trace (NEG) Urine RBC 0 /HPF (0-2) Urine WBC 5-10 /HPF (0-4) Urine Squamous Epithelial Cells Mod /LPF Urine Bacteria 0 /HPF (0-FEW) Urine Hyaline Casts Few /HPF Urine Mucus Mod /LPF Laboratory Tests Test 11/21/18 12:10 11/21/18 21:05 11/22/18 03:35 Mycoplasma Serology (LAB) Negative (NEGATIVE) Urine Collection Type Unknown Urine Color Yellow Urine Clarity Cloudy Urine pH 5.5 Urine Specific [place] >=1.030 Urine Protein 100 mg/dL (NEG-TRACE) Urine Glucose (UA) Negative mg/dL (NEG) Urine Ketones (Stick) Trace mg/dL (NEG) Urine Blood Negative (NEG) Urine Nitrite Negative (NEG) Urine Bilirubin Negative (NEG) Urine Urobilinogen Dipstick 0.2 mg/dL (0.2 mg/dL) Urine Leukocyte Esterase Trace (NEG) Urine RBC 0 /HPF (0-2) Urine WBC 5-10 /HPF (0-4) Urine Squamous Epithelial Cells Mod /LPF Urine Bacteria 0 /HPF (0-FEW) Urine Hyaline Casts Few /HPF Urine Mucus Mod /LPF White Blood Count 4.2 x10^3/uL (4.0-11.0) Red Blood Count 3.76 x10^6/uL (3.50-5.40) Hemoglobin 11.4 g/dL (12.0-15.5) Hematocrit 35.4 % (36.0-47.0) Mean Corpuscular Volume 94 fL (79-100) Mean Corpuscular Hemoglobin 30 pg (25-35) Mean Corpuscular Hemoglobin Concent 32 g/dL (31-37) Red Cell Distribution Width 14.6 % (11.5-14.5) Platelet Count 146 x10^3/uL (140-400) Neutrophils (%) (Auto) 87 % (31-73) Lymphocytes (%) (Auto) 5 % (24-48) Monocytes (%) (Auto) 8 % (0-9) Eosinophils (%) (Auto) 0 % (0-3) Basophils (%) (Auto) 0 % (0-3) Neutrophils # (Auto) 3.7 x10^3uL (1.8-7.7) Lymphocytes # (Auto) 0.2 x10^3/uL (1.0-4.8) Monocytes # (Auto) 0.3 x10^3/uL (0.0-1.1) Eosinophils # (Auto) 0.0 x10^3/uL (0.0-0.7) Basophils # (Auto) 0.0 x10^3/uL (0.0-0.2) Sodium Level 144 mmol/L (136-145) Potassium Level 4.6 mmol/L (3.5-5.1) Chloride Level 103 mmol/L (98-107) Carbon Dioxide Level 36 mmol/L (21-32) Anion Gap 5 (6-14) Blood Urea Nitrogen 17 mg/dL (7-20) Creatinine 0.9 mg/dL (0.6-1.0) Estimated GFR (Cockcroft-Gault) 59.0 Glucose Level 164 mg/dL (70-99) Lactic Acid Level 1.0 mmol/L (0.4-2.0) Calcium Level 9.4 mg/dL (8.5-10.1) Medications Active Scripts Medications Dose Route/Sig Max Daily Dose Days Date Category Flovent 110MCG Hfa (Fluticasone Propionate) 12 Gm Aer.w.adap 2 Puff IH BID 11/21/18 Reported Duoneb 0.5-3(2.5) Mg/3 Ml (Albuterol/Ipratropium) 3 Ml Ampul.neb 3 Ml NEB QID 08/25/18 Reported Escitalopram Oxalate 10 Mg Tablet 0.5 Tab PO DAILY 08/18/18 Reported Requip (Ropinirole Hcl) 1 Mg Tablet 2 Mg PO DAILY 08/15/18 Reported Mucinex (Guaifenesin) 1,200 Mg Tbmp.12hr 1 Tab PO BID 10/25/17 Reported Benadryl (Diphenhydramine Hcl) 25 Mg Capsule 2 Cap PO QHS 10/25/17 Reported Vitamin C (Ascorbic Acid) 500 Mg Tablet 500 Mg PO QHS 10/25/17 Reported Symbicort 160-4.5 Mcg Inhaler (Budesonide/Formoterol Fumarate) 10.2 Gm Hfa.aer.ad 1 Puff IH BID 10/25/17 Reported Calcium + D3 Er Tablet (Calcium Carb & Cit/Vitamin D3) 1 Each Tablet.er 1 Each PO BID 10/25/17 Reported Multivitamins (Multivitamin) 1 Each Tablet 1 Tab PO DAILY 10/25/17 Reported Liothyronine Sodium 5 Mcg Tablet 5 Mcg PO DAILY 10/25/17 Reported Levothyroxine Sodium 25 Mcg Tablet 1 Tab PO DAILY 10/25/17 Reported Xanax (Alprazolam) 0.25 Mg Tablet 0.25 Mg PO TID PRN PRN 03/19/14 Reported Singulair Tablet (Montelukast Sodium) 10 Mg Tablet 10 Mg PO QHS 09/18/13 Reported Aspirin 81 Mg Tab.chew 81 Mg PO QHS 09/18/13 Reported Trazodone Hcl 100 Mg Tablet 100 Mg PO QHS 09/18/13 Reported Impression . IMPRESSION: 1. [id number] hypoxemic hypercapnic respiratory failure. 2. Left lower lobe infiltrate compatible with pneumonia. 3. Acute exacerbation of asthma. 4. Morbid obesity. 5. Accelerated hypertension. Plan . POSSIBLE D/C ON 11/23 CONTINUE THE SAME PT HOME WITH H/H D/W DAUGHTER 1. Continue current antibiotics. 2. Oxygen supplementation. 3. Nebulized treatments. 4. PT evaluate and treat. TERRY NOVOA MD Nov 22, 2018 09:26
[2018-11-22 11:00] VITALS: BP 135/68
--- NOTE | 2018-11-22 11:04 | PDOC ---
PROGRESS NOTES Chief Complaint Chief Complaint LEft Lower lobe pneumonia/CAP in a never smoker Obesity BMI 30 Sepsis with tachycardia Hypoxic respiratory failure-sats 84% on arrival Accelerated hypertension POA Cirrhosis history Thrombocytopenia in a cirrhotic patient, no bleeding dementia History of Present Illness History of Present Illness Some Element of dementia but calm and pleasant No more reports of liquid stools Blood culture prelim negative Still tachycardic at rest Mycoplasma pneumonia negative Legionella pending Plan: CPM Await PT OT formal recommendations Not ready for discharge today as still tachycardia at rest Vitals Vitals Vital Signs Date Time Temp Pulse Resp B/P (MAP) Pulse Ox O2 Delivery O2 Flow Rate FiO2 11/22/18 08:45 94 Nasal Cannula 3.5 11/22/18 07:00 98.1 89 20 132/78 (96) 98.1 Physical Exam General: mild distress, Other (wheezy, on oxygen 2 L nasal cannula satting 92%) Lungs: Crackles, Other Abdomen: Normal bowel sounds, Soft, No tenderness, No hepatosplenomegaly, No masses Extremities: No clubbing, No cyanosis, No edema, Normal pulses, No tenderness/ swelling Skin: No rashes, No breakdown, No significant lesion Labs LABS Laboratory Tests Test 11/21/18 12:10 11/21/18 21:05 11/22/18 03:35 Mycoplasma Serology (LAB) Negative (NEGATIVE) Urine Collection Type Unknown Urine Color Yellow Urine Clarity Cloudy Urine pH 5.5 Urine Specific [place] >=1.030 Urine Protein 100 mg/dL (NEG-TRACE) Urine Glucose (UA) Negative mg/dL (NEG) Urine Ketones (Stick) Trace mg/dL (NEG) Urine Blood Negative (NEG) Urine Nitrite Negative (NEG) Urine Bilirubin Negative (NEG) Urine Urobilinogen Dipstick 0.2 mg/dL (0.2 mg/dL) Urine Leukocyte Esterase Trace (NEG) Urine RBC 0 /HPF (0-2) Urine WBC 5-10 /HPF (0-4) Urine Squamous Epithelial Cells Mod /LPF Urine Bacteria 0 /HPF (0-FEW) Urine Hyaline Casts Few /HPF Urine Mucus Mod /LPF White Blood Count 4.2 x10^3/uL (4.0-11.0) Red Blood Count 3.76 x10^6/uL (3.50-5.40) Hemoglobin 11.4 g/dL (12.0-15.5) Hematocrit 35.4 % (36.0-47.0) Mean Corpuscular Volume 94 fL (79-100) Mean Corpuscular Hemoglobin 30 pg (25-35) Mean Corpuscular Hemoglobin Concent 32 g/dL (31-37) Red Cell Distribution Width 14.6 % (11.5-14.5) Platelet Count 146 x10^3/uL (140-400) Neutrophils (%) (Auto) 87 % (31-73) Lymphocytes (%) (Auto) 5 % (24-48) Monocytes (%) (Auto) 8 % (0-9) Eosinophils (%) (Auto) 0 % (0-3) Basophils (%) (Auto) 0 % (0-3) Neutrophils # (Auto) 3.7 x10^3uL (1.8-7.7) Lymphocytes # (Auto) 0.2 x10^3/uL (1.0-4.8) Monocytes # (Auto) 0.3 x10^3/uL (0.0-1.1) Eosinophils # (Auto) 0.0 x10^3/uL (0.0-0.7) Basophils # (Auto) 0.0 x10^3/uL (0.0-0.2) Sodium Level 144 mmol/L (136-145) Potassium Level 4.6 mmol/L (3.5-5.1) Chloride Level 103 mmol/L (98-107) Carbon Dioxide Level 36 mmol/L (21-32) Anion Gap 5 (6-14) Blood Urea Nitrogen 17 mg/dL (7-20) Creatinine 0.9 mg/dL (0.6-1.0) Estimated GFR (Cockcroft-Gault) 59.0 Glucose Level 164 mg/dL (70-99) Lactic Acid Level 1.0 mmol/L (0.4-2.0) Calcium Level 9.4 mg/dL (8.5-10.1) Review of Systems Review of Systems Limited some element of dementia Assessment and Plan Assessmemt and Plan Problems Medical Problems: (1) Asthma exacerbation Status: Acute (2) Pneumonia Status: Acute Comment Review of Relevant I have reviewed the following items elis (where applicable) has been applied. Labs Laboratory Tests Test 11/20/18 23:25 11/21/18 12:10 11/21/18 21:05 11/22/18 03:35 White Blood Count 6.0 x10^3/uL (4.0-11.0) 4.2 x10^3/uL (4.0-11.0) Red Blood Count 4.23 x10^6/uL (3.50-5.40) 3.76 x10^6/uL (3.50-5.40) Hemoglobin 12.8 g/dL (12.0-15.5) 11.4 g/dL (12.0-15.5) Hematocrit 40.1 % (36.0-47.0) 35.4 % (36.0-47.0) Mean Corpuscular Volume 95 fL (79-100) 94 fL (79-100) Mean Corpuscular Hemoglobin 30 pg (25-35) 30 pg (25-35) Mean Corpuscular Hemoglobin Concent 32 g/dL (31-37) 32 g/dL (31-37) Red Cell Distribution Width 14.8 % (11.5-14.5) 14.6 % (11.5-14.5) Platelet Count 110 x10^3/uL (140-400) 146 x10^3/uL (140-400) Neutrophils (%) (Auto) 71 % (31-73) 87 % (31-73) Lymphocytes (%) (Auto) 9 % (24-48) 5 % (24-48) Monocytes (%) (Auto) 20 % (0-9) 8 % (0-9) Eosinophils (%) (Auto) 0 % (0-3) 0 % (0-3) Basophils (%) (Auto) 0 % (0-3) 0 % (0-3) Neutrophils # (Auto) 4.2 x10^3uL (1.8-7.7) 3.7 x10^3uL (1.8-7.7) Lymphocytes # (Auto) 0.6 x10^3/uL (1.0-4.8) 0.2 x10^3/uL (1.0-4.8) Monocytes # (Auto) 1.2 x10^3/uL (0.0-1.1) 0.3 x10^3/uL (0.0-1.1) Eosinophils # (Auto) 0.0 x10^3/uL (0.0-0.7) 0.0 x10^3/uL (0.0-0.7) Basophils # (Auto) 0.0 x10^3/uL (0.0-0.2) 0.0 x10^3/uL (0.0-0.2) Segmented Neutrophils % 63 % (35-66) Band Neutrophils % 9 % (0-9) Lymphocytes % 10 % (24-48) Monocytes % 18 % (0-10) Platelet Estimate Decreased (ADEQUATE) Large Platelets Occ Sodium Level 143 mmol/L (136-145) 144 mmol/L (136-145) Potassium Level 4.3 mmol/L (3.5-5.1) 4.6 mmol/L (3.5-5.1) Chloride Level 100 mmol/L (98-107) 103 mmol/L (98-107) Carbon Dioxide Level 36 mmol/L (21-32) 36 mmol/L (21-32) Anion Gap 7 (6-14) 5 (6-14) Blood Urea Nitrogen 17 mg/dL (7-20) 17 mg/dL (7-20) Creatinine 0.8 mg/dL (0.6-1.0) 0.9 mg/dL (0.6-1.0) Estimated GFR (Cockcroft-Gault) 67.5 59.0 BUN/Creatinine Ratio 21 (6-20) Glucose Level 109 mg/dL (70-99) 164 mg/dL (70-99) Lactic Acid Level 1.9 mmol/L (0.4-2.0) 1.0 mmol/L (0.4-2.0) Calcium Level 9.3 mg/dL (8.5-10.1) 9.4 mg/dL (8.5-10.1) Total Bilirubin 0.5 mg/dL (0.2-1.0) Aspartate Amino Transf (AST/SGOT) 23 U/L (15-37) Alanine Aminotransferase (ALT/SGPT) 19 U/L (14-59) Alkaline Phosphatase 61 U/L (46-116) Troponin I Quantitative < 0.017 ng/mL (0.000-0.055) Total Protein 6.9 g/dL (6.4-8.2) Albumin 3.2 g/dL (3.4-5.0) Albumin/Globulin Ratio 0.9 (1.0-1.7) Mycoplasma Serology (LAB) Negative (NEGATIVE) Urine Collection Type Unknown Urine Color Yellow Urine Clarity Cloudy Urine pH 5.5 Urine Specific [place] >=1.030 Urine Protein 100 mg/dL (NEG-TRACE) Urine Glucose (UA) Negative mg/dL (NEG) Urine Ketones (Stick) Trace mg/dL (NEG) Urine Blood Negative (NEG) Urine Nitrite Negative (NEG) Urine Bilirubin Negative (NEG) Urine Urobilinogen Dipstick 0.2 mg/dL (0.2 mg/dL) Urine Leukocyte Esterase Trace (NEG) Urine RBC 0 /HPF (0-2) Urine WBC 5-10 /HPF (0-4) Urine Squamous Epithelial Cells Mod /LPF Urine Bacteria 0 /HPF (0-FEW) Urine Hyaline Casts Few /HPF Urine Mucus Mod /LPF Laboratory Tests Test 11/21/18 12:10 11/21/18 21:05 11/22/18 03:35 Mycoplasma Serology (LAB) Negative (NEGATIVE) Urine Collection Type Unknown Urine Color Yellow Urine Clarity Cloudy Urine pH 5.5 Urine Specific [place] >=1.030 Urine Protein 100 mg/dL (NEG-TRACE) Urine Glucose (UA) Negative mg/dL (NEG) Urine Ketones (Stick) Trace mg/dL (NEG) Urine Blood Negative (NEG) Urine Nitrite Negative (NEG) Urine Bilirubin Negative (NEG) Urine Urobilinogen Dipstick 0.2 mg/dL (0.2 mg/dL) Urine Leukocyte Esterase Trace (NEG) Urine RBC 0 /HPF (0-2) Urine WBC 5-10 /HPF (0-4) Urine Squamous Epithelial Cells Mod /LPF Urine Bacteria 0 /HPF (0-FEW) Urine Hyaline Casts Few /HPF Urine Mucus Mod /LPF White Blood Count 4.2 x10^3/uL (4.0-11.0) Red Blood Count 3.76 x10^6/uL (3.50-5.40) Hemoglobin 11.4 g/dL (12.0-15.5) Hematocrit 35.4 % (36.0-47.0) Mean Corpuscular Volume 94 fL (79-100) Mean Corpuscular Hemoglobin 30 pg (25-35) Mean Corpuscular Hemoglobin Concent 32 g/dL (31-37) Red Cell Distribution Width 14.6 % (11.5-14.5) Platelet Count 146 x10^3/uL (140-400) Neutrophils (%) (Auto) 87 % (31-73) Lymphocytes (%) (Auto) 5 % (24-48) Monocytes (%) (Auto) 8 % (0-9) Eosinophils (%) (Auto) 0 % (0-3) Basophils (%) (Auto) 0 % (0-3) Neutrophils # (Auto) 3.7 x10^3uL (1.8-7.7) Lymphocytes # (Auto) 0.2 x10^3/uL (1.0-4.8) Monocytes # (Auto) 0.3 x10^3/uL (0.0-1.1) Eosinophils # (Auto) 0.0 x10^3/uL (0.0-0.7) Basophils # (Auto) 0.0 x10^3/uL (0.0-0.2) Sodium Level 144 mmol/L (136-145) Potassium Level 4.6 mmol/L (3.5-5.1) Chloride Level 103 mmol/L (98-107) Carbon Dioxide Level 36 mmol/L (21-32) Anion Gap 5 (6-14) Blood Urea Nitrogen 17 mg/dL (7-20) Creatinine 0.9 mg/dL (0.6-1.0) Estimated GFR (Cockcroft-Gault) 59.0 Glucose Level 164 mg/dL (70-99) Lactic Acid Level 1.0 mmol/L (0.4-2.0) Calcium Level 9.4 mg/dL (8.5-10.1) Microbiology 11/20/18 Blood Culture - Preliminary, Resulted NO GROWTH AFTER 1 DAY Medications Current Medications Albuterol/ Ipratropium (Duoneb) 3 ml 1X ONCE NEB Last administered on at 23:38; Start 11/20/18 at 23:30; Stop 11/20/18 at 23:31; Status DC Methylprednisolone Sodium Succinate (SOLU-Medrol 125MG VIAL) 80 mg 1X ONCE IV Last administered on 11/20/18at 23:53; Start 11/20/18 at 23:30; Stop 11/20/18 at 23:31; Status DC Albuterol/ Ipratropium (Duoneb) 3 ml 1X ONCE NEB Last administered on at 00:04; Start 11/21/18 at 00:00; Stop 11/21/18 at 00:01; Status DC Ondansetron HCl (Zofran) 4 mg PRN Q8HRS PRN IV NAUSEA/VOMITING; Start 11/21/18 at 00:30; Stop 11/22/18 at 00:29; Status DC Acetaminophen (Tylenol) 650 mg PRN Q4HRS PRN PO FEVER; Start 11/21/18 at 00:30 ; Stop 11/22/18 at 00:29; Status DC Albuterol/ Ipratropium (Duoneb) 3 ml RTQID NEB Last administered on 11/21/18at 11:32; Start 11/21/18 at 08:00; Stop 11/21/18 at 14:13; Status DC Doxycycline Hyclate 100 mg/ Dextrose 100 ml @ 50 mls/hr 1X ONCE IV Last administered on 11/21/18at 01:37; Start 11/21/18 at 01:00; Stop 11/21/18 at 02:59 ; Status DC Ceftriaxone Sodium (Rocephin) 1 gm 1X ONCE IVP Last administered on 11/21/18at 00:54; Start 11/21/18 at 00:30; Stop 11/21/18 at 01:04; Status DC Guaifenesin (Robitussin Dm) 10 ml PRN Q6HRS PRN PO COUGH; Start 11/21/18 at 09: 15 Levofloxacin/ Dextrose (Levaquin Per Pharmacy) 1 each PRN DAILY PRN MC SEE COMMENTS; Start 11/21/18 at 09:15 Clonidine HCl (Catapres) 0.1 mg PRN Q1HR PRN PO HYPERTENSION, SEE COMMENTS; Start 11/21/18 at 09:15 Alprazolam (Xanax) 0.25 mg TID PRN PRN PO ANXIETY / AGITATION Last administered on 11/22/18at 04:24; Start 11/21/18 at 09:15 Ascorbic Acid (Vitamin C) 500 mg QHS PO Last administered on 11/21/18at 22:02; Start 11/21/18 at 21:00 Aspirin (Children'S Aspirin) 81 mg QHS PO Last administered on 11/21/18 22:02 ; Start 11/21/18 at 21:00 Diphenhydramine HCl (Benadryl) 50 mg QHS PO Last administered on 11/21/18 22: 02; Start 11/21/18 at 21:00 Liothyronine Sodium (Cytomel) 5 mcg DAILY PO Last administered on 11/22/18 09: 19; Start 11/22/18 at 10:00 Trazodone HCl (Desyrel) 100 mg QHS PO Last administered on 11/21/18 22:02; Start 11/21/18 at 21:00 Non-Formulary Medication (Budesonide/ Formoterol Fumarate (Symbicort 160-4.5 Mcg Inhaler)) 1 puff BID IH ; Start 11/21/18 at 21:00; Status UNV Calcium/Vitamin D (Oscal D 500mg/ 200uts) 1 tab BIDWMEALS PO Last administered on 11/22/18 09:18; Start 11/21/18 at 10:00 Citalopram Hydrobromide (CeleXA) 10 mg DAILY PO Last administered on 11/22/18 09:19; Start 11/22/18 at 09:00 Non-Formulary Medication (Fluticasone Propionate (Flovent 110MCG Hfa)) 2 puff BID IH ; Start 11/21/18 at 21:00; Status UNV Guaifenesin (Mucinex) 1,200 mg BID PO Last administered on 11/22/18 09:18; Start 11/21/18 at 10:00 Levothyroxine Sodium (Synthroid) 25 mcg DAILY06 PO Last administered on 05:54; Start 11/21/18 at 10:00 Montelukast Sodium (Singulair) 10 mg QHS PO Last administered on 11/21/18 22: 02; Start 11/21/18 at 21:00 Multivitamins (Thera M Plus) 1 tab DAILY PO Last administered on 11/22/18 09: 19; Start 11/21/18 at 10:00 Ropinirole HCl (Requip) 2 mg DAILY PO Last administered on 11/22/18 09:22; Start 11/21/18 at 10:00 Albuterol/ Ipratropium (Duoneb) 3 ml RTQID NEB Last administered on 11/22/18at 08:42; Start 11/21/18 at 12:00 Budesonide (Pulmicort) 0.5 mg RTBID NEB Last administered on 11/21/18at 20:51; Start 11/21/18 at 12:00 Levofloxacin/ Dextrose 100 ml @ 100 mls/hr 1X ONCE IV Last administered on at 11:05; Start 11/21/18 at 10:00; Stop 11/21/18 at 10:59; Status DC Levofloxacin/ Dextrose 50 ml @ 50 mls/hr Q24H IV Last administered on at 09:20; Start 11/22/18 at 10:00 Methylprednisolone Sodium Succinate (SOLU-Medrol 40MG VIAL) 40 mg Q8HRS IV Last administered on 11/22/18at 05:54; Start 11/21/18 at 16:00 Methylprednisolone Sodium Succinate (SOLU-Medrol 40MG VIAL) 40 mg 1X ONCE IV Last administered on 11/21/18at 11:13; Start 11/21/18 at 11:30; Stop 11/21/18 at 11:31; Status DC Loperamide HCl (Imodium) 2 mg PRN Q15MIN PRN PO DIARRHEA; Start 11/21/18 at 11: 15 Lactobacillus Rhamnosus (Culturelle) 1 cap BID PO ; Start 11/22/18 at 21:00 Active Scripts Active Reported Flovent 110MCG Hfa (Fluticasone Propionate) 12 Gm Aer.w.adap 2 Puff IH BID Duoneb 0.5-3(2.5) Mg/3 Ml (Albuterol/Ipratropium) 3 Ml Ampul.neb 3 Ml NEB QID Escitalopram Oxalate 10 Mg Tablet 0.5 Tab PO DAILY Requip (Ropinirole Hcl) 1 Mg Tablet 2 Mg PO DAILY Mucinex (Guaifenesin) 1,200 Mg Tbmp.12hr 1 Tab PO BID Benadryl (Diphenhydramine Hcl) 25 Mg Capsule 2 Cap PO QHS Vitamin C (Ascorbic Acid) 500 Mg Tablet 500 Mg PO QHS Symbicort 160-4.5 Mcg Inhaler (Budesonide/Formoterol Fumarate) 10.2 Gm Hfa.aer.ad 1 Puff IH BID Calcium + D3 Er Tablet (Calcium Carb & Cit/Vitamin D3) 1 Each Tablet.er 1 Each PO BID Multivitamins (Multivitamin) 1 Each Tablet 1 Tab PO DAILY Liothyronine Sodium 5 Mcg Tablet 5 Mcg PO DAILY Levothyroxine Sodium 25 Mcg Tablet 1 Tab PO DAILY Xanax (Alprazolam) 0.25 Mg Tablet 0.25 Mg PO TID PRN PRN Singulair Tablet (Montelukast Sodium) 10 Mg Tablet 10 Mg PO QHS Aspirin 81 Mg Tab.chew 81 Mg PO QHS Trazodone Hcl 100 Mg Tablet 100 Mg PO QHS Vitals/I & O Vital Sign - Last 24 Hours 11/21/18 11/21/18 11/21/18 11/21/18 11:33 11:35 15:00 15:25 Temp 98.3 98.3 Pulse 97 Resp 16 B/P (MAP) 125/71 (89) Pulse Ox 97 97 93 O2 Delivery Nasal Cannula Nasal Cannula Nasal Cannula Nasal Cannula O2 Flow Rate 4.0 4.0 4.0 4.0 11/21/18 11/21/18 11/21/18 11/21/18 19:00 20:00 20:52 23:00 Temp 98.8 98.4 98.8 98.4 Pulse 91 94 Resp 20 20 B/P (MAP) 151/80 (103) 109/59 (76) Pulse Ox 90 92 91 O2 Delivery Nasal Cannula Nasal Cannula Nasal Cannula Nasal Cannula O2 Flow Rate 4.0 4.0 4.0 4.0 11/22/18 11/22/18 11/22/18 11/22/18 03:00 07:00 08:43 08:45 Temp 97.6 98.1 97.6 98.1 Pulse 109 89 Resp 18 20 B/P (MAP) 138/69 (92) 132/78 (96) Pulse Ox 92 97 94 94 O2 Delivery Nasal Cannula Nasal Cannula Nasal Cannula Nasal Cannula O2 Flow Rate 4.0 4.0 3.5 3.5 Intake and Output 11/21/18 11/21/18 11/22/18 15:00 23:00 07:00 Intake Total 350 ml 150 ml Balance 350 ml 150 ml JOSE LIAO MD Nov 22, 2018 11:04
--- NOTE | 2018-11-22 14:48 | NUR ---
SW following pt. PT/OT recommends SNU. Discussed with pt's daughter, Sirena in room about SNU. Daughter reported they rather go home with home health if needed upon dc. Sirena reported, Pt has used [facility] in the past and would like to use them again upon dc. SW will arrange HH upon dc. Will continue to follow.
[2018-11-22 19:00] VITALS: BP 140/96
[2018-11-22] MEDS: LACTOBACILLUS RHAMNOSUS GG 1 CAPSULE. PO SCH (21:40)
[2018-11-22] MEDS: diphenhydrAMINE HCL 25 MG CAPSULE PO SCH (21:40)
[2018-11-22] MEDS: ASPIRIN CHEWABLE 81 MG TABLET. PO SCH (21:41)
[2018-11-22] MEDS: ASCORBIC ACID 500 MG TABLET PO SCH (21:41)
[2018-11-22] MEDS: MONTELUKAST SODIUM 10 MG TABLET. PO SCH (21:41)
[2018-11-22] MEDS: traZODone 100 MG TABLET. PO SCH (21:41)
[2018-11-22] MEDS ORDERED: MAG HYDROX/ALUMINUM HYD/SIMETH 30 ML ORAL.SUSP PO PRN (22:45)
[2018-11-22] MEDS ORDERED: POLYETHYLENE GLYCOL 3350 17 GM PACKET. PO PRN (22:45)
[2018-11-22 22:47] VITALS: BP 121/49
[2018-11-23 03:00] VITALS: BP 137/80
[2018-11-23] MEDS: LEVOTHYROXINE 25 MCG TABLET. PO SCH (05:14)
[2018-11-23] MEDS: methylPREDNISolone SOD SUCC PF 40 MG/ML VIAL. IV SCH (05:15)
[2018-11-23 07:15] VITALS: BP 179/85
[2018-11-23] MEDS: BUDESONIDE 0.5 MG/2 ML NEBU. NEB SCH (07:28)
[2018-11-23] MEDS: IPRATRPIUM/ALBUTEROL 0.5/2.5MG 3 ML NEBU. NEB SCH ×3 (07:28→15:24)
[2018-11-23] MEDS: CALCIUM CARB/VIT D3 500/200 TABLET. PO SCH (09:16)
[2018-11-23] MEDS: MULTIVITAMIN with MINERAL TABLET. PO SCH (09:16)
[2018-11-23] MEDS: rOPINIRole 1 MG TABLET. PO SCH (09:16)
[2018-11-23] MEDS: LACTOBACILLUS RHAMNOSUS GG 1 CAPSULE. PO SCH (09:16)
[2018-11-23] MEDS: CITALOPRAM 10 MG TABLET. PO SCH (09:17)
[2018-11-23] MEDS: LIOTHYRONINE 5 MCG TABLET. PO SCH (09:17)
--- NOTE | 2018-11-23 09:23 | PDOC ---
PULMONARY PROGRESS NOTES Subjective PT FEELS BETTER EATING DINNER Vitals Vital Signs Date Time Temp Pulse Resp B/P (MAP) Pulse Ox O2 Delivery O2 Flow Rate FiO2 11/23/18 07:28 97 Nasal Cannula 3.5 11/23/18 07:15 97.5 92 18 179/85 (116) 97.5 ROS: No Nausea, No Chest Pain, No Abdominal Pain, No Increase Cough General: Alert Lungs: Clear Cardiovascular: S1, S2 Abdomen: Soft Neuro Exam: Alert Extremities: No Edema, Other Skin: Warm Labs Laboratory Tests Test 11/21/18 12:10 11/21/18 21:05 11/22/18 03:35 Mycoplasma Serology (LAB) Negative (NEGATIVE) Urine Collection Type Unknown Urine Color Yellow Urine Clarity Cloudy Urine pH 5.5 Urine Specific [place] >=1.030 Urine Protein 100 mg/dL (NEG-TRACE) Urine Glucose (UA) Negative mg/dL (NEG) Urine Ketones (Stick) Trace mg/dL (NEG) Urine Blood Negative (NEG) Urine Nitrite Negative (NEG) Urine Bilirubin Negative (NEG) Urine Urobilinogen Dipstick 0.2 mg/dL (0.2 mg/dL) Urine Leukocyte Esterase Trace (NEG) Urine RBC 0 /HPF (0-2) Urine WBC 5-10 /HPF (0-4) Urine Squamous Epithelial Cells Mod /LPF Urine Bacteria 0 /HPF (0-FEW) Urine Hyaline Casts Few /HPF Urine Mucus Mod /LPF White Blood Count 4.2 x10^3/uL (4.0-11.0) Red Blood Count 3.76 x10^6/uL (3.50-5.40) Hemoglobin 11.4 g/dL (12.0-15.5) Hematocrit 35.4 % (36.0-47.0) Mean Corpuscular Volume 94 fL (79-100) Mean Corpuscular Hemoglobin 30 pg (25-35) Mean Corpuscular Hemoglobin Concent 32 g/dL (31-37) Red Cell Distribution Width 14.6 % (11.5-14.5) Platelet Count 146 x10^3/uL (140-400) Neutrophils (%) (Auto) 87 % (31-73) Lymphocytes (%) (Auto) 5 % (24-48) Monocytes (%) (Auto) 8 % (0-9) Eosinophils (%) (Auto) 0 % (0-3) Basophils (%) (Auto) 0 % (0-3) Neutrophils # (Auto) 3.7 x10^3uL (1.8-7.7) Lymphocytes # (Auto) 0.2 x10^3/uL (1.0-4.8) Monocytes # (Auto) 0.3 x10^3/uL (0.0-1.1) Eosinophils # (Auto) 0.0 x10^3/uL (0.0-0.7) Basophils # (Auto) 0.0 x10^3/uL (0.0-0.2) Sodium Level 144 mmol/L (136-145) Potassium Level 4.6 mmol/L (3.5-5.1) Chloride Level 103 mmol/L (98-107) Carbon Dioxide Level 36 mmol/L (21-32) Anion Gap 5 (6-14) Blood Urea Nitrogen 17 mg/dL (7-20) Creatinine 0.9 mg/dL (0.6-1.0) Estimated GFR (Cockcroft-Gault) 59.0 Glucose Level 164 mg/dL (70-99) Lactic Acid Level 1.0 mmol/L (0.4-2.0) Calcium Level 9.4 mg/dL (8.5-10.1) Medications Active Scripts Medications Dose Route/Sig Max Daily Dose Days Date Category Flovent 110MCG Hfa (Fluticasone Propionate) 12 Gm Aer.w.adap 2 Puff IH BID 11/21/18 Reported Duoneb 0.5-3(2.5) Mg/3 Ml (Albuterol/Ipratropium) 3 Ml Ampul.neb 3 Ml NEB QID 08/25/18 Reported Escitalopram Oxalate 10 Mg Tablet 0.5 Tab PO DAILY 08/18/18 Reported Requip (Ropinirole Hcl) 1 Mg Tablet 2 Mg PO DAILY 08/15/18 Reported Mucinex (Guaifenesin) 1,200 Mg Tbmp.12hr 1 Tab PO BID 10/25/17 Reported Benadryl (Diphenhydramine Hcl) 25 Mg Capsule 2 Cap PO QHS 10/25/17 Reported Vitamin C (Ascorbic Acid) 500 Mg Tablet 500 Mg PO QHS 10/25/17 Reported Symbicort 160-4.5 Mcg Inhaler (Budesonide/Formoterol Fumarate) 10.2 Gm Hfa.aer.ad 1 Puff IH BID 10/25/17 Reported Calcium + D3 Er Tablet (Calcium Carb & Cit/Vitamin D3) 1 Each Tablet.er 1 Each PO BID 10/25/17 Reported Multivitamins (Multivitamin) 1 Each Tablet 1 Tab PO DAILY 10/25/17 Reported Liothyronine Sodium 5 Mcg Tablet 5 Mcg PO DAILY 10/25/17 Reported Levothyroxine Sodium 25 Mcg Tablet 1 Tab PO DAILY 10/25/17 Reported Xanax (Alprazolam) 0.25 Mg Tablet 0.25 Mg PO TID PRN PRN 03/19/14 Reported Singulair Tablet (Montelukast Sodium) 10 Mg Tablet 10 Mg PO QHS 09/18/13 Reported Aspirin 81 Mg Tab.chew 81 Mg PO QHS 09/18/13 Reported Trazodone Hcl 100 Mg Tablet 100 Mg PO QHS 09/18/13 Reported Impression . IMPRESSION: 1. [id number] hypoxemic hypercapnic respiratory failure. 2. Left lower lobe infiltrate compatible with pneumonia. 3. Acute exacerbation of asthma. 4. Morbid obesity. 5. Accelerated hypertension. Plan . D/W DR CRUZ AND DAUGHTER HOME TODAY FOLLOW UP IN OFFICE TERRY NOVOA MD Nov 23, 2018 09:23
[2018-11-23 11:02] VITALS: BP 173/69
--- NOTE | 2018-11-23 13:16 | SNU/HH DC ---
DISCHARGE WITH HOME HEALTH DISCHARGE INFORMATION: Final Diagnosis: Problems Medical Problems: (1) Asthma exacerbation Status: Acute (2) Pneumonia Status: Acute Condition on Discharge: Stable CODE STATUS: Code Status: Full HOME HEALTH: Face to Face: I certify this patient is under my care and that I, or a nurse practitioner or physician's technical assistant working with me, had a face to face encounter that meets the physician face to face encounter requirements with this patient on []. Medical Complications: Pneumonia Physical Therapy For: Evalulation/Treatment Occupational Therapy For: Evaluation/Treatment Home Health Aide For: Self-care THERAPEUTIC CONSULTANT For: Community Resources POST DISCHARGE ORDERS: Activity Instructions for Disc: Activity as tolerated Weight Bearing Status after Di: Full weight bearing DIET AFTER DISCHARGE: Cardiac CHECKS AFTER DISCHARGE: Checks after discharge: Check blood press - daily TREATMENT/EQUIPMENT ORDERS: Discharge Respiratory Equipmen: Oxygen CERTIFICATION STATEMENT: Certification Statement: Certification Statement: Based on the above finding, I certify that this patient is confined to the home and needs intermittent assisted care, physical therapy and/or speech therapy, or continues to need occupational therapy.~ This patient is under my care, and I have initiated the establishment of the plan of care.~ This patient will be followed by myself or a community physician who will periodically review the plan of care. Home Meds Reported Medications Fluticasone Propionate (FLOVENT 110MCG HFA) 12 Gm Aer.w.adap, 2 PUFF IH BID for ASTHMA, #1 INHALER 2 Refills 11/21/18 Ipratropium/Albuterol Sulfate (DUONEB 0.5-3(2.5) MG/3 ML) 3 Ml Ampul.neb, 3 ML NEB QID for shortness of breath, EACH 08/25/18 Escitalopram Oxalate (ESCITALOPRAM OXALATE) 10 Mg Tablet, 0.5 TAB PO DAILY for depression, #30 TAB 3 Refills 08/18/18 Ropinirole Hcl (REQUIP) 1 Mg Tablet, 2 MG PO DAILY for home med, TAB 08/15/18 Guaifenesin (MUCINEX) 1,200 Mg Tbmp.12hr, 1 TAB PO BID, #14 TAB 10/25/17 Diphenhydramine Hcl (BENADRYL) 25 Mg Capsule, 2 CAP PO QHS, #60 CAP 2 Refills 10/25/17 Ascorbic Acid (VITAMIN C) 500 Mg Tablet, 500 MG PO QHS, TAB 10/25/17 Budesonide/Formoterol Fumarate (SYMBICORT 160-4.5 MCG INHALER) 10.2 Gm Hfa.aer.ad, 1 PUFF IH BID, INHALER 10/25/17 Calcium Carb & Cit/Vitamin D3 (CALCIUM + D3 ER TABLET) 1 Each Tablet.er, 1 EACH PO BID, TAB.SR 10/25/17 Multivitamin (MULTIVITAMINS) 1 Each Tablet, 1 TAB PO DAILY, #90 TAB 3 Refills 10/25/17 Liothyronine Sodium (LIOTHYRONINE SODIUM) 5 Mcg Tablet, 5 MCG PO DAILY, TAB 10/25/17 Levothyroxine Sodium (LEVOTHYROXINE SODIUM) 25 Mcg Tablet, 1 TAB PO DAILY, #30 TAB 5 Refills 10/25/17 Alprazolam (XANAX) 0.25 Mg Tablet, 0.25 MG PO TID PRN PRN for ANXIETY / AGITATION, TAB 0 Refills 03/19/14 Montelukast Sodium (SINGULAIR TABLET) 10 Mg Tablet, 10 MG PO QHS 09/18/13 Aspirin (ASPIRIN) 81 Mg Tab.chew, 81 MG PO QHS, TAB.CHEW 09/18/13 Trazodone Hcl (TRAZODONE HCL) 100 Mg Tablet, 100 MG PO QHS 09/18/13 Discontinued Reported Medications Lisinopril (LISINOPRIL) 20 Mg Tablet, 20 MG PO DAILY 09/18/13 DARYN CRUZ III DO Nov 23, 2018 13:16
--- NOTE | 2018-11-23 13:41 | NUR ---
SW following pt. SW phoned and faxed HH orders to [facility]. Pt and daughter aware of plan and agreeable. RN notified.
[2018-11-23 15:06] VITALS: BP 139/65
[2018-11-23] MEDS ORDERED: AMOX1TAB61 PO (15:18)
[2018-11-23] MEDS ORDERED: METH4TAB2 PO (15:20)
--- NOTE | 2018-11-23 18:58 | DS ---
DATE OF DISCHARGE: 11/23/2018 ADMISSION DIAGNOSIS: Pneumonia. DISCHARGE DIAGNOSIS: Resolving pneumonia. HOSPITAL COURSE: The patient is a pleasant 88-year-old female who presented with pneumonia. She was admitted. We gave her IV antibiotics, breathing treatments, oxygen. Consulted Pulmonary, did physical therapy and occupational therapy and continued her home meds. Over the past few days, she has been doing much better. I saw her and examined her this morning. Her heart tones were normal. Her lungs were clear. Abdomen was soft. Extremities, no edema. I discussed the case with Dr. Black. We are going to go ahead and discharge the patient home with home health. DISPOSITION: Home with home health. ACTIVITY: As tolerated. DIET: Low sodium. MEDICATIONS: Please see MRAD. TOTAL TIME: 39 minutes. DARYN CRUZ DO DR: ENRIQUE/rogelio JOB#: [id number] / [id number]
== END 2018-11-23 16:00 | disposition home health service (06) | DRG 871 ==
LOC: ER 11-21 00:36 → 5 NORTH 11-21 01:10
PROVIDERS: ADMIT Family Medicine; ATTEND Family Medicine
DX: A41.9 Sepsis, unspecified organism (principal); J18.1 Lobar pneumonia, unspecified organism; J96.21 Acute and chronic respiratory failure with hypoxia; J96.22 Acute and chronic respiratory failure with hypercapnia; J45.901 Unspecified asthma with (acute) exacerbation; E66.01 Morbid (severe) obesity due to excess calories; F32.9 Major depressive disorder, single episode, unspecified; F41.9 Anxiety disorder, unspecified; M19.90 Unspecified osteoarthritis, unspecified site; D69.6 Thrombocytopenia, unspecified; E03.9 Hypothyroidism, unspecified; E78.5 Hyperlipidemia, unspecified; F03.90 Unspecified dementia, unspecified severity, without behavioral disturbance, psychotic disturbance, mood disturbance, and anxiety; Z96.649 Presence of unspecified artificial hip joint; I10 Essential (primary) hypertension; K74.60 Unspecified cirrhosis of liver; M81.0 Age-related osteoporosis without current pathological fracture; Z83.3 Family history of diabetes mellitus; Z68.30 Body mass index [BMI] 30.0-30.9, adult; Z86.73 Personal history of transient ischemic attack (TIA), and cerebral infarction without residual deficits; Z90.710 Acquired absence of both cervix and uterus; Z90.49 Acquired absence of other specified parts of digestive tract; Z88.5 Allergy status to narcotic agent; Z91.040 Latex allergy status; Z82.49 Family history of ischemic heart disease and other diseases of the circulatory system; Z80.9 Family history of malignant neoplasm, unspecified; Z79.899 Other long term (current) drug therapy
CPT/HCPCS: 36415; 71045; 80048; 80053; 81001; 83605; 84484; 85007; 85025; 86738; 87040; 87086; 87449; 93005; 94640; 94760; 96365; 96375; J0696; J1956; J2920; J2930; J3490; J7620; J7626; Q0163; 97110; 97535; 99285-25